=== PATIENT | female | born 1970 | race Caucasian/White ===

== ENCOUNTER → 2020-04-27 07:43 | Outpatient (CLI) | payer BC, SELFPAY ==
--- NOTE | ~2020-04-27 | MR_ITS ---
EXAMINATION: MR hand LT wo con DATE: 04/27/2020 08:28 INDICATION: Left hand pain, swelling and numbness with limited range of motion. TECHNIQUE: Magnetic resonance imaging (MRI) of the left hand was performed without intravenous contra st to include the metacarpals and digits. Sequences included axial, sagittal and coronal T1-weighted FSE and T2-weighted FS FSE. COMPARISON: None FINDINGS: Bone alignment is normal. Normal bone marrow signal throughout. Couple small T2 hyperintense lesions in the capitate which appear to represent sites of small vascular channels with differential includin g intraosseous ganglion cysts or erosions. No other suspected erosions identified. Joint spaces appe ar relatively preserved with no joint effusions. There is mild increased fluid signal consistent with mild tenosynovitis extending along the otherwise normal-appearing flexor tendons of the third digit and to a lesser degree the fourth digit. Remaining flexor and extensor tendons appear normal. The col lateral ligament complex at the metacarpophalangeal and interphalangeal joints appear normal. Intrins ic musculature of the hand is normal. IMPRESSION: 1. Mild tenosynovitis along the flexor tendons in the third and to lesser degree fourth digits. 2. A couple small T2 hyperintense lesions in the capitate is likely representing vascular channels di fferential including degenerative cystic change or possibly erosions. There are however no other eros ions at the metacarpophalangeal or interphalangeal joints. Reviewed, dictated and finalized at location A. ORT RAMP AGENT IMPRESSION: 1. Mild tenosynovitis along the flexor tendons in the third and to lesser degre e fourth digits. 2. A couple small T2 hyperintense lesions in the capitate is likely representin g vascular channels differential including degenerative cystic change or possib ly erosions. There are however no other erosions at the metacarpophalangeal or interphalangeal joints.
== END ==
PROVIDERS: PCP Family Medicine; Visit Provider Family Medicine
DX: M79.645 Pain in left finger(s) (principal)
CPT/HCPCS: 73218

== ENCOUNTER 2021-03-01 00:44 | Day surgery (SDC) | payer OTHER, SELFPAY ==
[2021-02-27 13:51] VITALS: BMI 23.1
--- NOTE | 2021-02-27 14:01 | PC.NURSE ---
Report to the Outpatient Waiting Room, entrance under the green pavilion located off [facility], at time 1230 on date 03/01/21. OR Time: 1430. - You will be asked a series of questions to screen for COVID 19 for your protection. - A mask is required within the hospital. - No visitors are allowed at this time. Preoperative COVID Testing Requirements: No COVID Test needed if: (proof is required; if not received patient will have Rapid Test prior to entry) - Patient has received COVID Vaccine at least 14 days prior to procedure date or - Patient has positive COVID test result within last 90 days of surgery date. COVID Test needed if above criteria is not met Patients may have clear liquids (water, carbonated beverages, clear teas, apple juice) until 3 hours prior to surgery with a maximum of 20 ounces. - No food from midnight until time of surgery - Infants may have breast milk until 4 hours before surgery, infant formula 6 hours prior to surgery. - Children will be allowed to drink immediately following surgery. If applicable, please bring a bottle or sippy cup to assist with drinking. Juice, water, soda, and popsicles are readily available. For infants on formula, please bring formula the day of surgery. Pacifiers are allowed. Take the following medications with a SIP of water the morning of surgery: TRAMADOL (IF NEEDED) Medications to discontinue per physician: VITAMINS /SUPPLEMENTS Date to take last dose: NOW Please no make-up, nail german, hairspray, perfume, deodorant, or body powder the day of surgery. No jewelry (including any body piercings) or valuables the day of surgery, leave them at home. Please take a shower or bath the night before, or the morning of, surgery with an antibacterial soap. Wear comfortable, loose fitting clothing. - Jewelry must be removed prior to entering the operating room. Rings and piercings that are not removed may be cut off. - The hospital will not accept responsibility for valuables. - Please leave all valuables, including medications, at home the day of surgery. If you are going home after surgery, a licensed truck driver supervisor must drive you home. - NO public transportation without another adult. - We recommend that an adult stay with you for 24 hours following discharge. - We also recommend that you do not drive, make important decision, drink alcoholic beverages, or take any drugs that were not prescribed by your health care provider for at least 24 hours after your discharge time. Follow any additional instructions given to you from your surgeon. Telephone instructions given to JUAN PABLO ARIAS and asked if any additional questions and then verbalized understanding. Patient advised to call surgeon office or pre surgery nurse liaison [phone] if any additional questions.
--- NOTE | 2021-02-28 15:25 | WPDANESEPPF ---
Anes - Initial Pre Proc Eval Procedure: Operation Date: 03/01/21 14:30 Proposed Procedures p Bilateral Breast Augmentation - Marek Pelaez MD Date/Time: 02/28/21 15:25 Surgeon: Marek Pelaez MD Pre Op Diagnosis: Micromastia Patient Data Age: 50 Gender: F Height: 1.68 m Weight: 64.86 kg Allergies Allergy/AdvReac Type Severity Reaction Status Date / Time diclofenac Allergy Unknown Hives Verified 03/01/21 12:27 Home Medications Medication Instructions Recorded Confirmed Type hydroxychloroquine 200 mg tablet See Rx Instructions .ROUTE 09/28/19 03/01/21 Rx .COMPLEX #180 tablet alprazolam 0.5 mg tablet 1 mg PO HS 01/15/21 03/01/21 History dextroamphetamine-amphetamine 20 20 mg PO DAILY 01/15/21 03/01/21 History mg tablet meloxicam 15 mg tablet 15 mg PO DAILY 01/15/21 03/01/21 History tramadol 50 mg tablet 50 mg PO Q6H PRN 01/15/21 03/01/21 History docusate sodium 100 mg capsule 100 mg PO DAILY #14 cap 02/14/21 03/01/21 Rx oxycodone-acetaminophen 5 mg-325 1 tablet PO Q6H PRN #30 tablet 02/14/21 03/01/21 Rx mg tablet creatine monohydrate 5,000 mg PO HS 02/27/21 03/01/21 History Patient hx anesthesia problems: none Family hx anesthesia problems: none Results Review: All pre-operative results and documents have been reviewed as part of the pre-operative evaluation. [facility] Past Medical History Medical History (Updated 02/28/21 @ 15:25 by Dominik Mitchell DO) ADHD Arthritis Lazy eye Primary localized osteoarthritis of hips, bilateral Rheumatoid arthritis with rheumatoid factor of multiple sites without organ or systems involvement (~2018) Surgical History Surgical History History of hip replacement Hx of tubal ligation Family History Family History Sibling History of kidney cancer Melanoma Father Vascular dementia Hx of blood clots Cerebrovascular accident Hypertension Grandparent Acute myocardial infarction Brain tumor Mother Arthritis Other Family history of arthritis Social History Social History Smoking packs per day: 1 Smoking cigarettes per day: 20.0 Years smoked: 28 Smoking pack-years: 28.00 Smoking status: Former smoker Tobacco type: cigarettes Smoking end date: 03/03/10 Alcohol intake: current Alcohol use details: A COUPLE/MONTH Substance use: never Substance use type: does not use Living arrangements: with family Spiritual care concerns: No Anes - Eval Final PreProcedure Day of Procedure 02/28/21 15:25 Patient weight: normal Heart: regular rate and rhythm Lungs: clear to auscultation and normal air movement Airway: Mallampati scale class II Neurological: alert and oriented Last oral intake: >/= 8 hours ASA classification: II Emergent: no Anesthetic plan: proceed Anesthesia type and monitoring: general LMA and standard monitoring Results Review: All pre-operative results and documents have been reviewed as part of the pre-operative evaluation. Informed Consent: The patient's anesthetic plan and its attendant risks and benefits were discussed with the patient/family/POA. Questions were solicited and answers provided to the satisfaction of the patient/family/POA.
[2021-03-01] VITALS (8 sets, daily range): BP systolic 119–141; BP diastolic 65–92; PULSE 70–91; RESP 12–16; TEMP 36.6–36.8; O2SAT 99–100
--- NOTE | 2021-03-01 09:43 | ECG_ITS ---
Measurements Intervals [place] Rate: 71 P: 81 MI: 185 QRS: 97 QRSD: 92 T: 62 QT: 376 QTc: 410 Interpretive Statements SINUS RHYTHM RIGHT AXIS DEVIATION INCOMPLETE RIGHT BUNDLE BRANCH BLOCK LOW QRS VOLTAGE IN PRECORDIAL LEADS BORDERLINE ECG Electronically Signed On 03-01-2021 12:37:24 CURRICULUM DEVELOPMENT MANAGER by Dutch Christensen D.O.
[2021-03-01] MEDS: LACTATED RINGERS 1,000 ML 30 ML IV CONT ×2 (12:46→15:28)
--- NOTE | 2021-03-01 15:13 | WPDHPUPDATE1 ---
History and Physical Update Update Date/Time: 03/01/21 15:13 History and Physical has been reviewed, including an updated exam of the patient. There are NO changes in the patient's condition. Risks, benefits, and alternatives have been discussed and questions answered. Patient agrees to proceed with procedure.
--- NOTE | 2021-03-01 15:32 | W.PM.PROC2 ---
Procedure Note - Detailed Date of Procedure 03/01/21 Pre-op Diagnosis Micromastia Post-op Diagnosis same Procedure Performed Bilateral augmentation mammaplasty Surgeon Marek Pelaez MD Anesthesia general Findings Bilateral dual plane 1 augmentation mammaplasty Alyssa Soft-Touch 400cc silicone smooth implants Right - REF# [id number] SN [id number] Left - REF# [id number] SN [id number] Description of Procedure She is here today for bilateral breast augmentation. Previously and again today the risks, benefits, alternatives were discussed in extensive detail. I wanted her to be very realistic about the risks involved as well as expectations. We discussed aftercare and what to monitor for. Made sure answered all of her questions to her satisfaction today and consent was obtained. Marked in the preoperative holding area with their verification. The patient was taken to the operating room placed supine on the operating table. Anesthesia was provided by anesthesiology. A surgical time-out was taken. We cleansed the skin and 1% lidocaine and 0.25% Marcaine with epinephrine was used anesthetize as a field block. She was prepped and draped in a standard sterile fashion. Tegaderm nipple [place] were placed. A 15 blade used to make an incision along the inframammary fold. Dissection was continued at 45 degree angle until the chest wall as identified. I incised the pectoralis major along its inferior border and completely released the inferior border leaving the medial border intact. I created a subpectoral pocket in the appropriate dimensions based on our preoperative planning for the implant. I then copiously irrigated with saline solution and verified a strict hemostasis. Next the use a triple antibiotic and Betadine containing solution to irrigate the pocket. I washed my gloves with the triple antibiotic and Betadine solution. We washed the implant immediately upon opening it with this solution and only opened it when we needed it. I used implant funnel and no-touch technique. The implant was introduced into the pocket using the funnel. Having verified positioning of the implant this was closed using 2-0 Vicryl followed by 3-0 Monocryl in a running subcuticular 4-0 Monocryl followed by tissue glue. Fluffs and surgical bra were placed. Patient was awoke and taken to PACU without difficulty. All instrument sponge counts were correct at the end of the case. Estimated Blood Loss 20 Drains No Packing No Pathology none sent Complications No immediate complications Condition stable Disposition PACU
[2021-03-01] MEDS: ceFAZolin 2 GM/D5W 50 ML 2 GM/50 ML BAG IVPB (15:49)
[2021-03-01] MEDS: LIDO 1%/EPINEPHRINE/PF 1:200,000 30 ML VIAL XX (15:56)
[2021-03-01] MEDS: BUPIVACAINE HCL 0.25% PF 30 ML VIAL INFILTRATE (15:56)
[2021-03-01] MEDS: TRANEXAMIC ACID 1,000MG/ISO100 1,000 MG/100 ML BAG 200 MG IVPB (15:57)
--- NOTE | 2021-03-01 16:30 | SUR.OPER ---
Breast Implants: From 's office [facility] SoftTouch Breast Implant 400CC Right: REF: [facility]-400 SN: [id number] EXP: 08-28-2025 Left : REF: LP-400 SN: [id number] EXP: 11-13-2025
[2021-03-01] MEDS: fentaNYL CITRATE INJ (*CRX) 100 MCG/2 ML VIAL 25 MCG IV PUSH ×2 (17:05→17:11)
[2021-03-01] MEDS: oxyCODONE HCL (*CRX) 5 MG TAB IR PO (17:54)
[2021-03-01] MEDS: ONDANSETRON INJ 4 MG/2 ML VIAL IV PUSH (17:57)
--- NOTE | 2021-03-01 18:17 | SUR.PHASEII ---
PT MEETS DISCHARGE CRITERIA AND IS GETTING DRESSED. PT RIDE IS PULLING UP AT THE ENTRANCE.
== END 2021-03-01 18:32 | disposition home or self-care (01) ==
PROVIDERS: PCP Family Medicine; Visit Provider Surgery Plastic and Reconstructive Surgery
PROC: (CPT 19325; principal; 2021-03-01 14:30)
DX: Z41.1 Encounter for cosmetic surgery (principal); N64.82 Hypoplasia of breast; M19.90 Unspecified osteoarthritis, unspecified site; M06.9 Rheumatoid arthritis, unspecified; I45.10 Unspecified right bundle-branch block; F90.9 Attention-deficit hyperactivity disorder, unspecified type; Z87.891 Personal history of nicotine dependence
CPT/HCPCS: 19325; 93005; A9270; J0690; J1100; J1170; J1580; J2250; J2405; J2704; J3010; J7120

== ENCOUNTER 2021-10-06 09:04 | Emergency (ER) | payer BC, SELFPAY ==
--- NOTE | ~2021-10-06 | XR_ITS ---
XR ankle LT min 3V DATE: 10/06/2021 09:24 INDICATION: Fall.. Lateral left ankle swelling. TECHNIQUE: 3 views COMPARISON: 02/27/2012 left ankle FINDINGS: There is a linear oblique fracture of the lateral malleolus above the level of the talar do me, with approximately one cortical width lateral displacement. There is overlying soft tissue swelli ng. The medial malleolus and posterior malleolus appear intact. The ankle mortise appears preserved. Plantar calcaneal enthesopathy. IMPRESSION: Lateral malleolar fracture Reviewed, dictated and finalized at location A. IMPRESSION: Lateral malleolar fracture
[2021-10-06 09:13] VITALS: BP 136/75; PULSE 98; RESP 16; TEMP 37.1; O2SAT 100
--- NOTE | 2021-10-06 09:39 | ED.LOWEXIN ---
HPI - Extremity Injury (Lower) General Chief Complaint: Extremity Injury, Lower Stated Complaint: Left ankle Pain Time Seen by Provider: 10/06/21 09:26 Source: patient Mode of arrival: ambulatory Limitations: no limitations History of Present Illness HPI Narrative: Patient presents today complaining of left lateral ankle pain. She fell on a metal walkway getting out of a ride last night at 9 PM. She has been ambulatory with severe pain since that time. She currently rates her pain 6/10 at rest, which increases significantly with movement. She has been taking her daily scheduled tramadol twice daily and once daily meloxicam for chronic pain and RA. These have not been helping much with her acute pain.Reports some tingling in her ankle and foot. Related Data Home Medications Medication Instructions Recorded Confirmed alprazolam 0.5 mg tablet 1 mg PO HS 01/15/21 10/06/21 dextroamphetamine-amphetamine 20 20 mg PO DAILY 01/15/21 10/06/21 mg tablet (Adderall) meloxicam 15 mg tablet 15 mg PO DAILY 01/15/21 10/06/21 creatine monohydrate 5,000 mg oral 5,000 mg PO HS 02/27/21 10/06/21 powder packet tramadol 50 mg tablet 50 mg PO BID 10/06/21 10/06/21 Allergies Allergy/AdvReac Type Severity Reaction Status Date / Time diclofenac Allergy Unknown Hives Verified 10/06/21 09:10 Review of Systems Review of Systems: CONSTITUTIONAL: Denies body aches, fever, chills, or sweats. EYES: Denies visual changes, redness, or discharge. ENT: Denies rhinorrhea, congestion, sore throat, or otalgia. CARDIOVASCULAR: Denies chest pain, palpitations, or edema. RESPIRATORY: Denies cough or dyspnea. GASTROINTESTINAL: Denies abdominal pain, nausea, vomiting, or diarrhea. GENITOURINARY: Denies dysuria or hematuria. SKIN: Denies rash, itching, or wounds. MUSCULOSKELETAL: Denies back pain, or myalgia.+Left ankle injury NEUROLOGIC: Denies headache, numbness, or weakness.+Tingling in ankle and foot PSYCH: Denies depression or anxiety. 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 systems involvement (~2018) Surgical History Surgical History History of hip replacement Hx of tubal ligation Family History Family History Sibling History of kidney cancer Melanoma Father Vascular dementia Hx of blood clots Cerebrovascular accident Hypertension Grandparent Acute myocardial infarction Brain tumor Mother Arthritis Other Family history of arthritis Social History Social History Smoking packs per day: 1 Smoking cigarettes per day: 20.0 Years smoked: 28 Smoking pack-years: 28.00 Tobacco type: cigarettes Smoking end date: 03/03/10 Alcohol intake: current Alcohol use details: A COUPLE/MONTH Substance use: never Substance use type: does not use Spiritual care concerns: No Comments At time of signature, I have reviewed and agree with nursing past medical, surgical, social and family history unless otherwise noted. Please see nursing chart for further information. There is no relevant family history pertinent to the presenting complaint Exam Narrative: GENERAL: Well-appearing, well-nourished, and in no acute distress. HEAD: Normocephalic, atraumatic. EYES: EOMI. No redness or drainage. Conjunctivae normal. ENT: Mucous membranes pink and moist. NECK: Normal AROM. CHEST: No respiratory distress. EXTREMITIES: Left ankle:Mild to moderate swelling about the ankle. Mild bruising laterally. Tenderness laterally. Distal sensation intact In all 5 toes. Capillary refill normal. Pedal pulse normal. Limited range of mo
== END 2021-10-06 09:55 | disposition home or self-care (01) ==
PROVIDERS: Emergency Provider Nurse Practitioner; PCP Family Medicine
DX: S82.62XA Displaced fracture of lateral malleolus of left fibula, initial encounter for closed fracture (principal); W19.XXXA Unspecified fall, initial encounter; F90.9 Attention-deficit hyperactivity disorder, unspecified type; M16.0 Bilateral primary osteoarthritis of hip; M05.79 Rheumatoid arthritis with rheumatoid factor of multiple sites without organ or systems involvement
CPT/HCPCS: 29515; 73610; 99214; G0463

== ENCOUNTER 2024-08-02 11:35 | Outpatient (CLI) | payer BC, SELFPAY ==
--- NOTE | 2024-08-02 11:30 | ECG_ITS ---
Test Date: 2024-08-02 11:57:44 Measurements Intervals [place] Rate: 75 P: 80 MO: 162 QRS: 90 QRSD: 82 T: 50 QT: 373 QTc: 418 Interpretive Statements SINUS RHYTHM BASELINE ARTIFACT- I, V4-V6 NORMAL ECG No previous ECG available for comparison Electronically Signed On 08-02-2024 15:49:37 CDT by Dutch Christensen D.O.
--- OUTSIDE RECORDS SUMMARY | 2024-08-02 12:03 | XMS_ITS | Encounter Summary ---
Author Organization [facility] Address [address] [place] [address] Phone Care Team Providers Care Cardiac Nurse Name Role Phone Anthony Sanders MD Primary Care Provider [phone] Ac Mcnulty MD Primary Care Provider Encounter Details Date Type Department Care Team (Late st Contact Info) Description 04/27/2020 Orders Only [facility] Scanning, Provider Social History Tobacco Use Types Packs/Day Years Used Date Smoking Tobacco: Never Assessed Comments Unknown Sex and Gender Information Value Date Recorded Sex Assigned at Not on file Legal Sex Female 4:03 PM GAME TECHNICIAN Gender Identity Female 05/05/2023 1:51 PM GAME TECHNICIAN Sexual Orientation Not on file documented as of this encounter Plan of Treatment Not on file documented as of this encounter Procedures Procedure Name Priority Date/Time Associated Diagnosis Comments SCAN - RADIOLOGY/IMAGING 04/27/2020 documented in this encounter Results * SCAN - RADIOLOGY/IMAGING (04/27/2020) Anatomical Region Laterality Modality Other us Provider Scanning Final Result documented in this encounter Visit Diagnoses Not on filedocumented in this encounter Additional Health Concerns Infection Onset Date Last Indicated Resolved Time COVID: Suspected 02/09/2024 02/09/2024 02/09/2024 12:04 PM GAME TECHNICIAN documented as of this encounter Care Teams Cardiac Nurse Relationship Specialty Start Date End Date Anthony Sanders MD [address] [place] [address] [place] [address] PCP - General Family Medicine 05/04/20 10/28/23 Ac Mcnulty MD [address] [place] [address] [place] [address] PCP - General Family Medicine 10/29/23 documented as of this encounter
--- OUTSIDE RECORDS SUMMARY | 2024-08-02 12:03 | XMS_ITS | Data Portability ---
Author Organization [facility] Address [address] [place] [address] [address] Assessment No assessment recorded. Plan of Treatment Reminders Order Date Submit Date Provider Last Modified By Organization Details Last Modified Time Details Appointments None recorded. Lab None recorded. Referral None recorded. Procedures None recorded. Surgeries hysterosco py, surgical, with biopsy of endometriu m and/or polypectom y (SURG) [address], [address], [place], [address], 0 20:47:15 Imaging US, transvagin al [address], [address], [address], [place], [address], 0 22:00:25 Medication Orders Anderson 5 mg-325 mg tablet 2019 INTERFACE [facility] #[id number], [address] [facility], [place], [place], [id number], 0 10:53:38 Xanax 0.5 mg tablet 2019 INTERFACE [facility] #[id number], [address] [facility], [place], [place], [id number], 0 10:53:37 ibuprofen 800 mg tablet 2019 020 INTERFACE [facility] #55130, [address], [place], [place], [id number], 0 10:53:36 Zofran 8 mg tablet 2019 020 INTERFACE [facility] #[id number], [address], [place], [place], [id number], 0 10:53:37 Patient TargetsNo targets recorded. Patient InstructionsNo instructions recorded. Reason for Referral None Reported. Results Created Date Observation Date Name Description Value Unit Range Abnormal Flag Note LastModifiedBy Organization Detail LastModifiedTime 09/07/19 20 US, trans vagin al No observ ation record ed. arnavran Ana [address], [place], [address], 09/09/2019 13:20:10 Result Notes None recorded. Problems Name Problem SNOMED Code Status Onset Date Resolution Date Notes Provider Name and Address Organization Details Recorded Time Genuine stress incontine nce 57072455 Active 2019 Stress incontinen ce (female) (male);Rec orded Elsewhere: No [facility]atio [facility]: EHR Chroni c: N Practice ID: [id number] Billa ble Time: 01:00:00 PM Not Available [facility] 0 18:26:19 Bleeding 291052156 Active 2019 Abnormal uterine and vaginal bleeding, unspecifie d;Recorded Elsewhere: No Locatio n: [facility] rce: EHR Chroni c: N Practice ID: [id number] Billa ble Time: 02:45:00 PM Not Available [facility] 0 18:26:19 Problem Notes None recorded. Medical Equipment None Reported. Medications Name Sig Start Date Stop Date Status Note LastModified by Organization Details LastModified Time Xanax 0.5 mg tablet Take 1 tablet 2 hours prior to procedure . 2019 active Not Available Not Available Not Avai lable ibuprofen 800 mg tablet TAKE 1 TABLET BY MOUTH 2 HOURS PRIOR TO PROCEDURE 2019 active Not Available Not Available Not Avai lable fluconazol e 150 mg tablet active Not Available Not Available Not Available Adderall 5 mg tablet take 1 tablet by oral route 2 times every day before breakfast and at noon active Prescribe d Elsewhere : Yes Locat ion: [facility] Mo dify By: trace [place] [email or web address] DateTime: 0 01:00:00 PM Not Available Not Available Not Available meloxicam 15 mg tablet active Not Available Not Available Not Available metronidaz ole 0.75 % (37.5 mg/5 gram) vaginal gel active Not Available Not Available Not Available tramadol 50 mg tablet active Not Available Not Available Not Available propranolo l 10 mg tablet active Not Available Not Available Not Available Zofran 8 mg tablet 1 tablet 2 hours prior to procedure 2019 active Not Available Not Available Not Avai lable methocarba mol 750 mg tablet active Not Available Not Available Not Available progestero ne micronized 200 mg capsule TAKE ONE CAPSULE BY MOUTH EVERY DAY FOR 12 DAYS IN THE EVENING SEQUENTIA LLY PER 28 DAY CYCLE active Not Available Not Available No t Available hydrochlor othiazide 12.5 mg capsule take 1 capsule by oral route every day active Prescribe d Elsewhere : Yes Locat ion: [facility] dify By: trace Cross ncounter DateTime: 0 01:00:00 PM Not Available Not Available Not Available Adderall XR 10 mg capsule,ex tended release active Not Available Not Available Not Available Alprazolam Intensol 1 mg/mL oral concentrat e take 0.25 millilite r by oral route 3 times every day mixed with water, juice, soda, soda-like beverage, applesauc e or pudding active Prescribe d Elsewhere : Yes Locat ion: [facility] dify By: trace Cross ncounter DateTime: 0 01:00:00 PM Not Available Not Available Not Available hydroxychl oroquine 200 mg tablet active Not Available Not Available Not Available Anderson 5 mg-325 mg tablet Take 2 tablets 2 hours prior to procedure . 2019 active Not Available Not Available Not Avai lable progestero ne micronized 100 mg capsule Take 1 capsule every day by oral route. active Not Available Not Available No t Available Adderall XR 15 mg capsule,ex tended release active Not Available Not Available Not Available tramadol ER 300 mg capsule 24 hr,extende d release take 1 capsule by oral route every day active Prescribe d Elsewhere : Yes Locat ion: [facility] difilir By: smct[facility]ay [place] ncounter DateTime: 0 01:00:00 PM Not Available Not Available Not Available Vitals Date Recorded Body weight Body mass index (BMI) Body height Systolic blood pressure Diastolic blood pressure Provider Name and Address Organization Details Last Updated DateTime 09/07/2019 06684 g 25.3 kg/m2 167.64 cm 119 mm[Hg] 72 mm[Hg] Maria Guadalupe Lopez [facility] 0 10:18:01 Social History None recorded. Functional Status None recorded. Mental Status None recorded. Family History Relationship Description Onset Age of this Age Resolved Age Notes LastModified by Organization Details LastModified Time Mother Disorder of thyroid gland [email or web address] Not available 2019 10:29:52 Father Hypertensive disorder [email or web address] Not available 2019 10:30:21 Father Hyperlipidem ia [email or web address] Not available 2019 10:30:33 Brother Carcinoma in situ of kidney [email or web address] Not available 2019 10:30:56 Notes:Prolapsed uterus- Moth er Brother: Cancer, kidney Father: Hypertension, high cholesterol Mother: Thyroid disease, prolapsed uterus Medical History Condition Response Anxiety Disorder Y Gynecological HistoryNo gynecological history recorded. Obstetrics History GPAL:G 0 P 0 0 0 0 Past Encounters Encounter ID Performer Location Encounter Start Date Encounter Closed Date Diagnosis/Indication Diagnosis SNOMED-CT Code Diagnosis ICD10 Code Diagnosis Note [id number] Dion Castillo MD [facility] [address] [address] 09/07/2019 09:40:48 09/07/2019 10:33:26 Abnormal uterine bleeding [id number] 9100 N93.9 [id number] Dion Castillo MD [facility] [address] [address] 09/07/2019 09:42:39 09/08/2019 15:16:18 Abnormal uterine bleeding 9340249939 9100 N93.9 Polyp of corpus uteri 11 374395 N84.0 This patient is a 48-year-ol d female who presents forabnorma l uterine bleeding.T he patient was being treated withdailym icronized progestero ne. For 3-1/2 months she did not have any bleeding.P roximately 2 weeks ago she began bleeding fairly heavily.Sh e has been bleeding currently for 2 weeks. An ultrasound was obtained today.Ultr asoundreve aled2 possibleva scular lesions within the endometriu m.We discussed those findings. We discussede valuation. I recommende d that we perform hysterosco py D&C to evaluate the lesions and sample them.She agreed to that. We spent more than 15 minutes face-to-fa ce. We are going to proceed with hysterosco py D&Kendal the office.We discussed risk of the procedure. Patient understand s her risk, benefits, and alternativ es to this procedure. We discussed performing the procedure under sedation at the hospital, and also with pain medication here in the office. We have elected to perform it in the office. Health Concerns Section Related Observation LastModified by Organization Detai ls LastModified Time None Recorded Concern Status LastModified by Organization Details LastModified Time None Recorded Advance Directives Directive None Recorded Payers Encounter Date Sequence Insurance Name Policy Number Policy Leon Covered Member ID Leon Member ID Guarantor Name 09/07/2019 1 [employer] [id number] Orlin Cordero [id number] 09/07/2019 1 [place] [id number] Orlin Cordero [id number] Notes Date Note Type Note Provider Name and Address Organization Details Recorded Time 09/07/2019 text/html This patient is a 48-year-old female who presents for abnormal uterine bleeding. The patient was being treated with daily micronized progesterone. For 3-1/2 months she did not have any bleeding. Proximately 2 weeks ago she began bleeding fairly heavily. She has been bleeding currently for 2 weeks. An ultrasound was obtained today. Ultrasound revealed 2 possible vascular lesions within the endometrium. We discussed those findings. We discussed evaluation. I recommended that we perform hysteroscopy D&C to evaluate the lesions and sample them. She agreed to that. We spent more than 15 minutes [id number]. We are going to proceed with hysteroscopy D&C in the office. Dion Castillo MD [address], [place], [address], [place] [facility] 09/07/2019 20:08:14 OBGyn Episode No OBEpisode recorded.
--- OUTSIDE RECORDS SUMMARY | 2024-08-02 12:03 | XMS_ITS | Patient Health Record ---
Author Organization [facility] Address [address] [facility] [address] [place] [address] Care Team Providers Care Market Research Consultant Name Role Phone Gregor Gonzalez Unavailable [phone] Bang Diaz Unavailable [phone] Allergies No Known Allergies Reason For Referral No Information Medications Medication SIG (Take, Route, Frequency, Duration) Notes Start Date End Date Status Hydroxychloroquine Sulfate 2 00 MG Oral 06/26/2023 Active lamoTRIgine 25 MG 2 tablets Oral once a day for 90 days Active Methotrexate Sodium 2.5 MG Oral for 30 Days Active Pantoprazole Sodium 40 MG TAKE 1 TABLET BY MOUTH ONCE DAILY TO PROTECT STOMACH LINING Oral for 30 Days Active Folic Acid 1 MG Oral for 30 Days Active Ibuprofen 600 MG Oral 06/26/2023 Ac tive Meloxicam 15 MG Oral 06/26/2023 Act arnulfo DULoxetine HCl 60 MG 1 capsule Oral Once a day for 90 days Active Immunizations Vaccine Route Administration Date Status Comme nts Pfizer [employer] Covid-19 Vac cine 2nd dose Unknown 01/08/2021 Administered Social History Tobacco Use: Social History Observation Description Date Details (start date - stop date) Former Smoker NA - NA Sex Assigned At : Social History Observation Description Sex Assigned At Female Tobacco Control (Standard) Question Answer Notes Tobacco use: Former smoker Problems Problem Type SNOMED Code ICD Code Onset Dates Problem Status W/U Status Risk Notes Problem Moderate recurrent major depression (79067456) Major depressive disorder, recurrent, moderate (F33.1) Active confirmed Problem Primary insomnia (5841647) Primary insomnia (F51.01) Active confirmed Problem Attention deficit hyperactivity disorder, combined type (26550392) Attention-deficit hyperactivity disorder, combined type (F90.2) Active confirmed Vital Signs Heart Rate 91 /min 11/10/2023 Height-cm 167.64 cm 11/10/2023 Blood pressure diastolic 77 mm Hg 11/10/2023 Weight-kg 73.03 kg 11/10/2023 Height 66.00 in 11/10/2023 Blood pressure systolic 127 mm Hg 11/10/2023 Weight 161.0 lbs 11/10/2023 BMI 25.98 kg/m2 11/10/2023 Encounters Encounter Location Date Provider Diagnosis [facility] [address] [place] [address] 09/29/2023 Gregor Gonzalez Primary insomnia F51 .01 ; Attention-deficit hyperactivity disorder, combined type F90.2 and Mild recurrent major depression F33.0 [facility] [address] [place] [address] 11/10/2023 Gregor Gonzalez Primary insomnia F51 .01 ; Attention-deficit hyperactivity disorder, combined type F90.2 and Mild recurrent major depression F33.0 [facility] [address] [place] [address] 08/18/2023 Gregor Gonzalez Major depressive disorder, recurrent, moderate F33.1 [facility] [address] [place] [address] 08/18/2023 Rgegor Gonzalez [facility] [address] [place] [address] 08/29/2023 Gregor Gonzalez [facility] [address] [place] [address] 08/30/2023 Gregor Gonzalez Major depressive disorder, recurrent, moderate F33.1 [facility] [address] [place] [address] 09/19/2023 Bang Diaz Major depressive disorder, recurrent, moderate F33.1 [facility] [address] [place] [address] 12/03/2023 Rgegor Gonzalez Mild recurrent major depression F33.0 Assessments Encounter Date Diagnosis (ICD Code) Assessment Notes Treatment Notes Treatment Clinical Notes Section Notes 08/18/2023 Major depressive disorder, recurrent, moderate (ICD-10 - F33.1) 08/30/2023 Major depressive disorder, recurrent, moderate (ICD-10 - F33.1) 09/19/2023 Major depressive disorder, recurrent, moderate (ICD-10 - F33.1) 09/29/2023 Primary insomnia (ICD-10 - F51.01) 1. Depression and Anxiety: - Increase Duloxetine from 30 mg to 60 mg daily. . - Consider referral to a therapist specializing in ADHD, such as [facility] in [place]. 2. ADHD: - Patient prefers not to take stimulants; Strattera was not effective. Plan: - Explore Cognitive Behavioral Therapy (CBT) for ADHD with a specialized therapist, such as [facility] in [place]. - Follow up in six weeks to assess response to increased Duloxetine dosage and other medication adjustments. 09/29/2023 Attention-deficit hyperactivity disorder, combined type (ICD-10 - F90.2) 1. Depression and Anxiety: - Increase Duloxetine from 30 mg to 60 mg daily. . - Consider referral to a therapist specializing in ADHD, such as [facility] in [place]. 2. ADHD: - Patient prefers not to take stimulants; Strattera was not effective. Plan: - Explore Cognitive Behavioral Therapy (CBT) for ADHD with a specialized therapist, such as [facility] in [place]. - Follow up in six weeks to assess response to increased Duloxetine dosage and other medication adjustments. 11/10/2023 Primary insomnia (ICD-10 - F51.01) persistent sleep problems 1. Rheumatoid arthritis - Patient reports improvement in pain with methotrexate. Plan: - Continue methotrexate as prescribed. - Monitor for side effects such as hair loss, upset stomach, and lethargy. 2. Mood disorder - Patient is currently on duloxetine 60 mg and reports improvement in mood. Plan: - Continue duloxetine 60 mg as prescribed. - Monitor for any changes in mood or side effects. 3. Hormonal imbalance - Patient is using testosterone cream and reports improvement in energy and mood. Plan: - Encourage follow-up with OBGYN, for further evaluation and management of hormonal imbalance. 4. Sleep disturbance - Patient reports ongoing sleep issues despite stopping gabapentin, prednisone, and meloxicam. Plan: - Encourage good sleep hygiene and consider referral to a sleep specialist if no improvement. 5. Weight loss and exercise - Patient reports losing 13 pounds since the last visit and has resumed training. Plan: - Encourage continued healthy lifestyle changes, including regular exercise and a balanced diet. 6. ADHD - Patient is not currently taking any ADHD medications and reports managing symptoms without them. Plan: - Monitor for any changes in ADHD symptoms and consider re-evaluation if needed. 7. Anxiety - Patient reports not taking alprazolam (Xanax) since July and managing anxiety without it. Plan: - Continue to monitor for any changes in anxiety levels. Follow-up: - Schedule a follow-up appointment in six months or sooner if any issues arise. 12/03/2023 Mild recurrent major depression (ICD-10 - F33.0) 11/10/2023 Attention-deficit hyperactivity disorder, combined type (ICD-10 - F90.2) behavior modification 1. Rheumatoid arthritis - Patient reports improvement in pain with methotrexate. Plan: - Continue methotrexate as prescribed. - Monitor for side effects such as hair loss, upset stomach, and lethargy. 2. Mood disorder - Patient is currently on duloxetine 60 mg and reports improvement in mood. Plan: - Continue duloxetine 60 mg as prescribed. - Monitor for any changes in mood or side effects. 3. Hormonal imbalance - Patient is using testosterone cream and reports improvement in energy and mood. Plan: - Encourage follow-up with OBGYN, for further evaluation and management of hormonal imbalance. 4. Sleep disturbance - Patient reports ongoing sleep issues despite stopping gabapentin, prednisone, and meloxicam. Plan: - Encourage good sleep hygiene and consider referral to a sleep specialist if no improvement. 5. Weight loss and exercise - Patient reports losing 13 pounds since the last visit and has resumed training. Plan: - Encourage continued healthy lifestyle changes, including regular exercise and a balanced diet. 6. ADHD - Patient is not currently taking any ADHD medications and reports managing symptoms without them. Plan: - Monitor for any changes in ADHD symptoms and consider re-evaluation if needed. 7. Anxiety - Patient reports not taking alprazolam (Xanax) since July and managing anxiety without it. Plan: - Continue to monitor for any changes in anxiety levels. Follow-up: - Schedule a follow-up appointment in six months or sooner if any issues arise. 09/29/2023 Mild recurrent major depression (ICD-10 - F33.0) 1. Depression and Anxiety: - Increase Duloxetine from 30 mg to 60 mg daily. . - Consider referral to a therapist specializing in ADHD, such as [facility] in [place]. 2. ADHD: - Patient prefers not to take stimulants; Strattera was not effective. Plan: - Explore Cognitive Behavioral Therapy (CBT) for ADHD with a specialized therapist, such as [facility] in [place]. - Follow up in six weeks to assess response to increased Duloxetine dosage and other medication adjustments. 11/10/2023 Mild recurrent major depression (ICD-10 - F33.0) 1. Rheumatoid arthritis - Patient reports improvement in pain with methotrexate. Plan: - Continue methotrexate as prescribed. - Monitor for side effects such as hair loss, upset stomach, and lethargy. 2. Mood disorder - Patient is currently on duloxetine 60 mg and reports improvement in mood. Plan: - Continue duloxetine 60 mg as prescribed. - Monitor for any changes in mood or side effects. 3. Hormonal imbalance - Patient is using testosterone cream and reports improvement in energy and mood. Plan: - Encourage follow-up with OBGYN, for further evaluation and management of hormonal imbalance. 4. Sleep disturbance - Patient reports ongoing sleep issues despite stopping gabapentin, prednisone, and meloxicam. Plan: - Encourage good sleep hygiene and consider referral to a sleep specialist if no improvement. 5. Weight loss and exercise - Patient reports losing 13 pounds since the last visit and has resumed training. Plan: - Encourage continued healthy lifestyle changes, including regular exercise and a balanced diet. 6. ADHD - Patient is not currently taking any ADHD medications and reports managing symptoms without them. Plan: - Monitor for any changes in ADHD symptoms and consider re-evaluation if needed. 7. Anxiety - Patient reports not taking alprazolam (Xanax) since July and managing anxiety without it. Plan: - Continue to monitor for any changes in anxiety levels. Follow-up: - Schedule a follow-up appointment in six months or sooner if any issues arise. 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
--- OUTSIDE RECORDS SUMMARY | 2024-08-02 12:03 | XMS_ITS | Encounter Summary ---
Author Organization [facility] Healthcare Address [address] [place] [address] Care Team Providers Care Tool Grinder Operator External Name Role Phone Ac Mcnulty MD Primary Care Provider [phone] Encounter Details Date Type Department Care Team (Late st Contact Info) Description 06/29/2024 Results Follow-Up [facility] Family Medicine at [address] [place] [address] Ac Mcnulty MD [address] [place] [address] [address] [place] [address] CBC with auto differential Social History Tobacco Use Types Packs/Day Years Used Date Smoking Tobacco: Former Cigarettes 0.5 10 AUDIT-C Answer Date Recorded Q1: How often do you have a drink containing alcohol? Monthly or less 02/09/2024 Q2: How many drinks containi ng alcohol do you have on a typical day when you are drinking? Patient does not drink Q3: How often do you have si x or more drinks on one occasion? Never 02/09/2024 PHQ-2 Answer Date Recorded PHQ-2 Total Score (If total score is 3 or more points, staff should administer the PHQ-9) 0 05/17/2024 Comments Unknown Sex and Gender Information Value Date Recorded Sex Assigned at Not on file Legal Sex Female 4:03 PM SPEECH AND LANGUAGE TUTOR Gender Identity Female 05/05/2023 1:51 PM SPEECH AND LANGUAGE TUTOR Sexual Orientation Not on file documented as of this encounter Plan of Treatment Not on file documented as of this encounter Visit Diagnoses Not on filedocumented in this encounter Care Teams Tool Grinder Operator External Relationship Specialty Start Date End Date Ac Mcnulty MD PCP - General Family Medicine 10/29/23 documented as of this encounter
--- OUTSIDE RECORDS SUMMARY | 2024-08-02 12:03 | XMS_ITS | Encounter Summary ---
Author Organization [facility] Healthcare Address [address] [place] [address] Care Team Providers Care Handstitching Machine Armhole Feller Name Role Phone Ac Mcnulty MD Primary Care Provider [phone] Encounter Details Date Type Department Care Team (Late st Contact Info) Description 05/12/2024 Orders Only [facility] Medical Group Family Medicine at [address] [place] [address] Ac Mcnulty MD [address] [place] [address] [address] [place] [address] Social History Tobacco Use Types Packs/Day Years [...] points, staff should administer the PHQ-9) 0 10/29/2023 Comments Unknown Sex and Gender Information Value Date Recorded Sex Assigned at Not on file Legal Sex Female 4:03 PM PHARMACIST IN CHARGE OWNER Gender Identity Female 05/05/2023 1:51 PM PHARMACIST IN CHARGE OWNER Sexual Orientation Not on file documented as of this encounter Plan of Treatment Not on file documented as of this encounter Visit Diagnoses Not on filedocumented in this encounter Care Teams Handstitching Machine Armhole Feller Relationship Specialty Start Date End Date Ac Mcnulty MD PCP - General Family Medicine 10/29/23 documented as of this encounter
--- OUTSIDE RECORDS SUMMARY | 2024-08-02 12:03 | XMS_ITS | Clinical Summary ---
Author Organization [facility] Virtual Care Address [address] [place] [phone] Phone Care Team Providers Care Wire Stripper Name Role Phone Ac Mcnulty MD Primary Care Provider [phone] Allergies Active Allergy Reactions Criticality Noted Date Comments Diclofenac Hives Medium 06/12/2020 Oxycodone Hives Medium 05/12/2023 Rash Medications estradiol-noreth indrone (ACTIVELLA) 1-0.5 mg per tablet [address] (CYMBALTA) 30 mg capsule Take 1 capsule (30 mg total) by mouth every morning 4 Active lamoTRIgine (LaMICtal) 25 mg tablet Take 2 tablets (50 mg total) by mouth nightly 4 Active hydroxychloroqui ne (PLAQUENIL) 200 mg tablet TAKE 2 TABLETS FRIDAY, FRIDAY, AND FRIDAY AND 1 TABLET FRIDAY, FRIDAY, FRIDAY, AND FRIDAY 180 tablet 3 4 Active methotrexate 2.5 mg tablet Take 1 tablet (2.5 mg total) by mouth every 7 days On Wednesdays - 10 tabs per day - Active pantoprazole DR (PROTONIX) 40 mg EC tablet Take 1 tablet (40 mg total) by mouth daily Active folic acid (FOLVITE) 1 mg tablet Take 1 tablet (1 mg total) by mouth daily Active clobetasoL (TEMOVATE) 0.05 % ointmentIndicati ons:Atopic dermatitis, unspecified type Apply topically 2 (two) times a day 60 g 5 Active lisdexamfetamine (VYVANSE) 30 mg capsule Take 1 capsule (30 mg total) by mouth every morning 5 Active Active Problems Problem Noted Date Diagnosed Date Atopic dermatitis 02/09/2024 Assessment & Plan (02/09/2024 9:17 PM DIRECTOR FINANCIAL SERVICES): - Initiate Clobetasol 0.05% ointment BID - Report back to office with continued rash despite treatment after one week Primary insomnia 02/09/2024 Rheumatoid arthritis 10/29/2023 Mixed stress and urge urinary incontinence 10/28 Presence of artificial hip joint 06/29/2013 Nicotine dependence, uncomplicated 06/29/2013 Dorsalgia 06/29/2013 Attention deficit hyperactivity disorder, combin ed type 06/29/2013 Resolved Problems Problem Noted Date Diagnosed Date Resolved Date Acute non-recurrent frontal sinusitis 02/09/2024 05/17/2024 Assessment & Plan (02/09/2024 9:18 PM DIRECTOR FINANCIAL SERVICES): - COVID/flu/strep POC testing in office today negative - Due to length of symptoms suspect bacterial vs viral sinusitis - Initiate Augmentin 875-125 mg BID x 10 days - Encouraged increased fluid intake and rest - May take Tylenol 1,000 mg q6h PRN for pain Encounters Date Type Department Care Team Description 06/29/2024 Results Follow-Up [facility] at [address] [place] [phone] Ac Mcnulty MD CBC with auto differential 05/17/2024 1:30 PM CDT Office Visit [facility] at [address] [place] [phone] Ac Mcnulty MD Annual physical exam (Primary Dx) 05/12/2024 Orders Only [facility] at [address] [place] [phone] Ac Mcnulty MD from Last 3 Months Immunizations Immunization Administration Dates Next Due DTaP 06/02/2012 Hep A, Adult 06/02/2012 Hep B, Unspecified 06/02/2012 Influenza, Unspecified 12/02/2023(Deferr ed: Patient Refused),12/01/2022(Deferred: Patient Refused),03/31/2013 MMR 06/02/2012 Surgical History Surgery Date Site/Laterality Comments TUBAL LIGATION 03/03/1995 - 03/02/1996 TOTAL HIP ARTHROPLASTY 03/03/2012 - 03/02/2013 Right FL FLUORO GUIDED INJECTION HIP LEFT 10/31/2022 Left COSMETIC SURGERY 03/01/2022 breast augmentation JOINT REPLACEMENT 01/31/2023 - 03/02/2023 Left hip EYE SURGERY Left lazy eye Medical History Medical History Date Comments Polyarthritis Anxiety Family History Medical History Relation Name Comments Kidney failure Brother 3 Heart disease Father Hypertension Father Arthritis Mother Osteoarthritis Mother Arthritis Sister 1 Rheum arthritis Sister 1 Relation Name Status Comments Brother 1 Alive Brother 2 Alive Brother 3 Father Mother Alive Sister 1 Alive Sister 2 Alive Social History Tobacco Use Types Packs/Day Years [...] on file Legal Sex Female 4:03 PM DIRECTOR FINANCIAL SERVICES Gender Identity Female 05/05/2023 1:51 PM DIRECTOR FINANCIAL SERVICES Sexual Orientation Not on file Obstetrics History Last Filed Vital Signs Vital Sign Reading Time Taken Comments Blood Pressure 110/72 05/17/2024 1:52 PM CDT Pulse 80 05/17/2024 1:52 PM CDT Temperature 36.8 C (98.2 F) 05/17/2024 1:52 PM CDT Respiratory Rate 18 02/09/2024 11:06 AM DIRECTOR FINANCIAL SERVICES Oxygen Saturation 98% 05/17/2024 1:52 PM CDT Inhaled Oxygen Concentration - - Weight 88.2 kg (194 lb 8 oz) 05/17/2024 1:52 PM CDT Height 165.1 cm (5' 5) 05/17/2024 1:52 PM CDT Body Mass Index 32.37 05/17/2024 1:52 PM CDT Plan of Treatment Health Maintenance Due Date Last Done Comments Breast Cancer Screening-Mammogram 1968 Cervical Cancer Screening 1968 Colon Cancer Screening-Colonoscopy 1968 Hepatitis C Screening 1968 Pneumococcal vaccine <65 (1 of 2 - PCV) 11/21/1987 Zoster Vaccine (1 of 2) 11/21/1987 Covid-19 Vaccine (2 - Pfizer risk series) 01/29/2021 01/08/2021 DTaP/Tdap/Td Vaccine (2 - Tdap) 06/02/2022 3 Influenza Vaccine (Season Ended) 2024 03/31/19 14 Depression Screening 05/17/2025 05/17/2024, 10/29/19 24 Regular Well Visit/Exam 18-64 05/17/2025 05/17/2024 Hepatitis B Screening Completed 06/02/2012 Procedures Procedure Name Priority Date/Time Associated Diagnosis Comments T3FREE Routine 06/29/2024 8:30 AM CDT THYROXINE (T4) FREE, DIRECT, S Routine 06/29/2024 8:30 AM CDT THYROID FUNCTION CASCADE Routine 06/29/2024 8:30 AM CDT Annual physical exam LIPID PANEL Routine 06/29/2024 8:30 AM CDT Annual physical exam COMPREHENSIVE METABOLIC PANEL Routine 06/29/2024 8:30 AM CDT Annual physical exam CBC WITH AUTO DIFFERENTIAL Routine 06/29/2024 8:30 AM CDT Annual physical exam from Last 3 Months Results * Thyroxine (T4) Free, Direct, S (06/29/2024 8:30 AM CDT) [facility] Signature Free T4 1.20 0.82 - 1.77 ng/dL [facility] - 01 06/29/2024 8:30 AM CDT 06/29/2024 Narrative [facility] - 06/30/2024 3:35 AM CDT Performed at: [address] [place] [id number] Tire Recapper: Lj Mckinney PhD, Phone: [phone] Ac Mcnulty MD LAB BLOOD ORDERABLES Final Re sult Performing Organization Address [facility] de Phone Number [facility] - * T3Free (06/29/2024 8:30 AM CDT) Free T3 2.6 2.0 - 4.4 pg/mL [facility] - 01 Thyroid peroxidase (TPO) Ab, comment Comment [facility] - 01 Comment: A low TSH with a normal FT4 and a normal FT3 have been associated with Subclinical Hyperthyroidism. Similar values have also been associated with Non-Thyroidal Illness in severely ill patients. 06/29/2024 8:30 AM CDT 06/29/2024 Narrative [facility] - 06/30/2024 3:35 AM CDT Performed at: [address] [place] [id number] Tire Recapper: Lj Mckinney PhD, Phone: [phone] Ac Mcnulty MD LAB BLOOD ORDERABLES Final Re sult Performing Organization Address [facility] de Phone Number [facility] - * (ABNORMAL) Thyroid Function [place] (06/29/2024 8:30 AM CDT) TSH 0.212(L) 0.450 - 4.500 uIU/mL [facility] - 01 Blood 06/29/2024 8:30 AM CDT 06/29/2024 Narrative [facility] - 06/30/2024 3:35 AM CDT Performed at: [address] [place] [address], [place] [id number] Tire Recapper: Lj Mckinney PhD, Phone: [phone] us Ac Mcnulty MD LAB BLOOD ORDERABLES Final Re sult [facility] - 01 * (ABNORMAL) CBC with auto differential (06/29/2024 8:30 AM CDT) Pathologist [facility] [place] WBC 4.4 3.4 - 10.8 x10E3/uL [facility] - 01 RBC 4.28 3.77 - 5.28 x10E6/uL [facility] - 01 Hgb 14.2 11.1 - 15.9 g/dL [facility] - 01 Hct 42.6 34.0 - 46.6 % [facility] - 01 MCV 100(H) 79 - 97 fL [facility] - 01 MCH 33.2(H) 26.6 - 33.0 pg [facility] - 01 MCHC 33.3 31.5 - 35.7 g/dL [facility] - 01 Rdw 13.5 11.7 - 15.4 % [facility] - 01 Platelets 241 150 - 450 x10E3/uL [facility] - 01 Neutrophils pct 60 Not Estab. % [facility] - 01 Lymphs pct 29 Not Estab. % [facility] - 01 Monocytes pct 8 Not Estab. % [facility] - 01 Eosinophils pct 2 Not Estab. % [facility] - 01 Basophil pct 1 Not Estab. % [facility] - 01 Neutrophil abs 2.7 1.4 - 7.0 x10E3/uL [facility] - 01 Lymphs (Absolute) 1.3 0.7 - 3.1 x10E3/uL [facility] - 01 Monocyte abs 0.4 0.1 - 0.9 x10E3/uL [facility] - 01 Eosinophils, abs 0.1 0.0 - 0.4 x10E3/uL [facility] - 01 Basophils, abs 0.0 0.0 - 0.2 x10E3/uL [facility] - 01 Immature Granulocytes 0 Not Estab. % [facility] - 01 Immature Grans (Abs) 0.0 0.0 - 0.1 x10E3/uL [facility] - 01 Blood 06/29/2024 8:30 AM CDT 06/29/2024 Narrative [facility] - 06/30/2024 12:07 AM CDT Performed at: [address] [id number] Tire Recapper: Lj Mckinnye PhD, Phone: [phone] us Ac Mcnulty MD LAB BLOOD ORDERABLES Final Re sult Performing Organization Address [facility] de Phone Number [facility] - * (ABNORMAL) Lipid panel (06/29/2024 8:30 AM CDT) Cholesterol 200(H) 100 - 199 mg/dL [facility] - 01 Triglycerides 61 0 - 149 mg/dL [facility] - 01 HDL Cholesterol 79 >39 mg/dL [facility] - 01 VLDL 11 5 - 40 mg/dL [facility] - 01 LDL, calculated 110(H) 0 - 99 mg/dL [facility] - 01 Blood 06/29/2024 8:30 AM CDT 06/29/2024 Narrative [facility] - 06/30/2024 2:07 AM CDT Performed at: [address] [id number] Tire Recapper: Lj Mckinney PhD, Phone: [phone] us Ac Mcnulty MD LAB BLOOD ORDERABLES Final Re sult Performing Organization Address [facility] de Phone Number [facility] - * Comprehensive metabolic panel (06/29/2024 8:30 AM CDT) Glucose 88 70 - 99 mg/dL [facility] - 01 BUN 19 6 - 24 mg/dL [facility] - 01 Creatinine, Serum 0.88 0.57 - 1.00 mg/dL [facility] - 01 eGFR 78 >59 mL/min/1.73 [facility] - 01 BUN/creat ratio 22 9 - 23 [facility] - 01 Sodium 139 134 - 144 mmol/L [facility] - 01 Potassium, sr 4.6 3.5 - 5.2 mmol/L [facility] - 01 Chloride 105 96 - 106 mmol/L [facility] - 01 CO2 20 20 - 29 mmol/L [facility] - 01 Calcium 9.2 8.7 - 10.2 mg/dL [facility] - 01 Protein, sr 6.7 6.0 - 8.5 g/dL [facility] - 01 Albumin 4.5 3.8 - 4.9 g/dL [facility] - 01 Globulin, Total 2.2 1.5 - 4.5 g/dL [facility] - 01 Bilirubin, Total 0.3 0.0 - 1.2 mg/dL [facility] - 01 Alk phos 52 44 - 121 IU/L [facility] - 01 AST 19 0 - 40 IU/L [facility] - 01 ALT 9 0 - 32 IU/L [facility] - 01 Blood 06/29/2024 8:30 AM CDT 06/29/2024 Narrative [facility] - 06/30/2024 2:07 AM CDT Performed at: [facility] [address] [id number] Tire Recapper: Lj Mckinney PhD, Phone: [phone] us Ac Mcnulty MD LAB BLOOD ORDERABLES Final Re sult [facility] - 01 from Last 3 Months Insurance [facility] CHOICE OOS BLUE ACC CHOICE OOS Care Teams Wire Stripper Relationship Specialty Start Date End Date Ac Mcnulty MD PCP - General Family Medicine 10/29/23
--- OUTSIDE RECORDS SUMMARY | 2024-08-02 12:03 | XMS_ITS | Referral Summary ---
Author Organization [facility] Virtual Care Address [address] [place] [phone] Phone Care Team Providers Care Exchange Trouble Shooter Name Role Phone Ac Mcnulty MD Primary Care Provider [phone] Encounters Date Type Department Care Team Description 06/29/2024 Results Follow-Up [facility] Medical [facility] Family Medicine at [address] [place] [phone] Ac Mcnulty MD CBC with auto differential 05/17/2024 1:30 PM CDT Office Visit [facility] Family Medicine at [address] [place] [address] Ac Mcnulty MD Annual physical exam (Primary Dx) 05/12/2024 Orders Only [facility] Family Medicine at [address] [place] [phone] Ac Mcnulty MD from Last 3 Months Allergies Active Allergy Reactions Criticality Noted Date [...] 02/09/2024 Assessment & Plan (02/09/2024 9:17 PM MEN'S CUSTOM HAIR PIECE CONSULTANT): - Initiate Clobetasol 0.05% ointment BID - [...] 05/17/2024 Assessment & Plan (02/09/2024 9:18 PM MEN'S CUSTOM HAIR PIECE CONSULTANT): - COVID/flu/strep POC testing in office today negative - Due to length of symptoms suspect bacterial vs viral sinusitis - Initiate Augmentin 875-125 mg BID x 10 days - Encouraged increased fluid intake and rest - May take Tylenol 1,000 mg q6h PRN for pain Immunizations Immunization Administration Dates Next Due DTaP 06/02/2012 Hep A, Adult 06/02/2012 Hep B, Unspecified 06/02/2012 Influenza, Unspecified 12/02/2023(Deferr ed: Patient Refused),12/01/2022(Deferred: Patient Refused),03/31/2013 MMR 06/02/2012 Social History Tobacco Use Types Packs/Day Years [...] on file Legal Sex Female 4:03 PM MEN'S CUSTOM HAIR PIECE CONSULTANT Gender Identity Female 05/05/2023 1:51 PM MEN'S CUSTOM HAIR PIECE CONSULTANT Sexual Orientation Not on file Last Filed Vital Signs Vital Sign Reading Time Taken Comments Blood Pressure 110/72 05/17/2024 1:52 PM CDT Pulse 80 05/17/2024 1:52 PM CDT Temperature 36.8 C (98.2 F) 05/17/2024 1:52 PM CDT Respiratory Rate 18 02/09/2024 11:06 AM MEN'S CUSTOM HAIR PIECE CONSULTANT Oxygen Saturation 98% 05/17/2024 1:52 PM CDT Inhaled Oxygen Concentration - - Weight 88.2 kg (194 lb 8 oz) 05/17/2024 1:52 PM CDT Height 165.1 cm (5' 5) 05/17/2024 1:52 PM CDT Body Mass Index 32.37 05/17/2024 1:52 PM CDT Plan of Treatment Not on file Procedures Procedure Name Priority Date/Time Associated Diagnosis [...] Free, Direct, S (06/29/2024 8:30 AM CDT) Free T4 1.20 0.82 - 1.77 ng/dL [facility] - 01 06/29/2024 8:30 AM CDT 06/29/2024 Narrative [facility] - 06/30/2024 3:35 AM CDT Performed at: [address] [place] [id number] Unit Secy: Lj Mckinney PhD, Phone: [phone] us Ac Mcnulty MD LAB BLOOD ORDERABLES Final Re sult [facility] - 01 * T3Free (06/29/2024 8:30 AM CDT) Pathologist [facility] Free T3 2.6 2.0 - 4.4 pg/mL [...] - 06/30/2024 3:35 AM CDT Performed at: [address] [place] [id number] Unit Secy: Lj Mckinney PhD, Phone: [phone] us Ac Mcnulty MD LAB BLOOD ORDERABLES Final Re sult Performing Organization Address City/[facility]/ZIP Co de Phone Number [facility] - * (ABNORMAL) Thyroid Function [place] (06/29/2024 8:30 AM CDT) Pathologist [facility] TSH 0.212(L) 0.450 - 4.500 uIU/mL [facility] - 01 Blood 06/29/2024 8:30 AM CDT 06/29/2024 Narrative [facility] - 06/30/2024 3:35 AM CDT Performed at: [address] [place] [address] Unit Secy: Lj Mckinney PhD, Phone: [phone] Ac Mcnulty MD LAB BLOOD ORDERABLES Final Re sult Performing Organization Address [facility] Co de Phone Number [facility] - * (ABNORMAL) CBC with auto differential (06/29/2024 8:30 AM CDT) Pathologist [facility] WBC 4.4 3.4 - 10.8 x10E3/uL [facility] [...] - 06/30/2024 12:07 AM CDT Performed at: [address] [place] [id number] Unit Secy: Lj Mckinney PhD, Phone: [phone] us Ac Mcnulty MD LAB BLOOD ORDERABLES Final Re sult [facility] - 01 * (ABNORMAL) Lipid panel (06/29/2024 8:30 AM CDT) [facility] Cholesterol 200(H) 100 - 199 mg/dL [facility] - 01 Triglycerides 61 0 - 149 mg/dL [facility] - 01 HDL Cholesterol 79 >39 mg/dL [facility] - 01 VLDL 11 5 - 40 mg/dL [facility] - 01 LDL, calculated 110(H) 0 - 99 mg/dL [facility] - 01 Blood 06/29/2024 8:30 AM CDT 06/29/2024 Narrative [facility] - 06/30/2024 2:07 AM CDT Performed at: [address] [place] [id number] Unit Secy: Lj Mckinney PhD, Phone: [phone] Ac Mcnulty MD LAB BLOOD ORDERABLES Final Re sult Performing Organization Address [facility]/ZIP Co de Phone Number [facility] - 01 * Comprehensive metabolic panel (06/29/2024 8:30 AM CDT) [facility] Signature Glucose 88 70 - 99 mg/dL [facility] [...] - 06/30/2024 2:07 AM CDT Performed at: - [facility] [id number] Unit Secy: Lj Mckinney PhD, Phone: [phone] us Ac Mcnulty MD LAB BLOOD ORDERABLES Final Re sult Performing Organization Address [facility]/State/ZIP Co de Phone Number [facility] - 01 from Last 3 Months Insurance BLUE ACC CHOICE OOS [employer] [facility] CHOICE OOS Care Teams Exchange Trouble Shooter Relationship Specialty Start Date End Date Ac Mcnulty MD PCP - General Family Medicine 10/29/23
--- OUTSIDE RECORDS SUMMARY | 2024-08-02 12:03 | XMS_ITS | Data Portability ---
Author Organization [facility] [employer], Main Office Address [address] [place] [address] Assessment No assessment recorded. Plan of Treatment Reminders Order Date Submit Date Provider Last Modified By Organization Details Last Modified Time Details Appointments None recorded. Lab CBC w/ auto diff 2022 023 [email or web address] Not available 4 16:22:50 CMP, serum or plasma 2022 023 [email or web address] Not available 4 16:22:50 PT/PTT, plasma 2022 023 Not available 4 16:22:50 PT/INR 2022 023 SHANIQUE Not available 3 13:34:32 Referral None recorded. Procedures None recorded. Surgeries None recorded. Imaging electrocard iogram 2022 023 [email or web address] 11 [facility] [address], [place], [address], 3 14:48:39 Medication Orders hydrocodone 5 mg-acetamin ophen 325 mg tablet 2022 023 [id number], [address] [facility], [place], [place], [id number], 3 10:04:12 Patient TargetsNo targets recorded. Patient Instructions Encounter Date Encounter Id Patient Instructions Last Modified By Organization Details Last Modified Time 02/13/2023 [id number] is cleared for surgery with anaesthesia Not available 02/24/2023 19:15:10 Reason for Referral None Reported. Results Created Date Observation Date Name Description Value Unit Range Abnormal Flag Note LastModifiedBy Organization Detail LastModifiedTime 02/05/20 22 02/04/2022 rsv (resp irato ry syncy tial virus ), rapid , nasop haryn geal RSV negati ve Not Available [facility] [address] , [address], [place], [address], 02/04/2022 12:40:15 10/07/19 22 10/06/2021 imagi ng/di agnos tic resul t No observ ation record ed. [id number] [facility] [address], [place], [address], 05/01/2022 07:38:31 02/05/20 XR, chest , 2 view [facility] [address] [place] [address] [phone] Patien t Name: TANJA CORDERO ER Access ion #: [id number] Sex: F : 1970 1 Locati on: RA2 Attend ing Physic james: ANTHONY ALAMO Orderansley rubalcava Physic james: ANTHONY ALAMO Exam Date: 022 11:59 AM Exam Name: XR CHEST 2V Admitt ing Diagno sis(es ): RADIOL OGY REPORT - FINAL EXAM: XR CHEST 2V HISTOR Y: cough 51-yea r-old female with cough and shortn ess of breath for 2 months , former smoker . COMPAR KEON: None availa ble. TECHNI QUE: 2 views of the chest were perfor med. FINDIN GS: No pneumo thorax , pulmon lawrence edema, pleura l effusi ons, or consol idativ e infilt rates. The heart is not enlarg ed. There are bilate ral breast implan ts. No fractu res are identi fied about the bony thorax . There is mild thorac ic degene rative disc diseas e. Page 1 of 2 [facility] Patien t Name: BIANCA CORDEROKOLBYBe ER Access ion #: [id number] Sex: F : 1970 1 Exam Date: 11:59 AM Exam Name: XR CHEST 2V Admitt ing Diagno sis(es ): IMPRES CAROL: No acute intrat horaci c proces s. Create d and electr onical ly signed by: Ac ji MD Signed Date: 12:47 PM (CT) Dictat ed by: Ac ji MD DD: 12:47 PM (CT) DT: 12:47 PM (CT) Page 2 of 2 [id number] [facility] (Imaging) [address] [place], [address], 05/01/2022 07:38:31 02/05/20 22 02/04/2022 XR, chest , 2 view No observ ation record ed. MIGRATION. [address] , [place], [address], 05/01/2022 07:38:31 02/14/20 22 02/12/2022 imagi ng/di agnos tic resul t No observ ation record ed. MIGRATION. [id number] [facility] Orders [address] [place], [address], 05/01/2022 07:38:31 04/15/19 23 04/15/2022 MAMMO , scree meredith, digit al, bilat eral No observ ation record ed. [id number] [facility] Lab Orders [address] [place], [address], 05/01/2022 07:38:31 02/14/20 23 elect rocar diogr am No observ ation record ed. [email or web address] [facility] [address], [place], [address], 02/13/2023 09:56:50 03/06/19 24 02/13/2023 elect ronak queen am No observ ation record ed. [email or web address] [facility] [address], [place], [address], 03/22/2023 20:36:25 Result Notes None recorded. Problems Name Problem SNOMED Code Status Onset Date Resolution Date Notes Provider Name and Address Organization Details Recorded Time Undifferen tiated attention deficit disorder 42106675 Active 2017 Not Available [facility] 3 19:24:27 Arthritis 7120181 Active 2017 Not Available [facility] 3 19:24:28 Mitral valve prolapse 671044950 Active 2017 Not Available [facility] 3 19:24:28 Anxiety 03737740 Active 2022 Not Available [facility] 3 19:24:28 Vaginitis 46266434 Active 2022 Not Available [facility] 3 19:24:27 Pain of left hip joint 0609874923269 00 Active 2022 Not Available [facility] 3 19:24:28 Chronic low back pain 197256812 Active 2022 Not Available [facility] 3 19:24:27 Pain of right shoulder joint 0970811443519 9100 Active 2022 Not Available [facility] 3 19:24:27 Pre-surger y evaluation Active 2022 JIGNESH Salomon [address] [facility], [place], [address] , [facility] 3 09:56:01 Problem Notes None recorded. Medical Equipment None Reported. Allergies Allergen ID Allergen Name Allergen Category Reaction Reaction Severity Criticality Documentation Date Start Date Code Code System Note Provider Name and Address Organization Details Recorded Time 36986 Voltaren medicatio n Not available Not available Not available 05/01/2022 64814 6 RxNorm Not Available [facility] 3 07:38:20 Medications Name Sig Start Date Stop Date Status Note LastModified by Organization Details LastModified Time cyclobenzap rine 10 mg tablet Take 1 tablet 3 times a day by oral route as needed. active Not Available Not Available No t Available medroxyprog esterone 10 mg tablet TAKE 1 TABLET BY MOUTH EVERY DAY FOR 10 DAYS DIRECTED 03/12 completed Not Available Not Available Not Available azithromyci n 250 mg tablet TAKE 2 TABLETS (500 MG) BY ORAL ROUTE ONCE DAILY FOR 1 DAY THEN 1 TABLET (250 MG) BY ORAL ROUTE ONCE DAILY FOR 4 DAYS 02/04 completed Not Available Not Available Not Available ibuprofen 800 mg tablet 09/11 completed Not Available Not Available Not Available fluconazole 150 mg tablet TAKE 1 TABLET BY MOUTH EVERY DAY FOR 1 DAY. MAY REPEAT IN 3 DAYS NEEDED active Not Available Not Available No t Available benzonatate 200 mg capsule Take 1 capsule 3 times a day by oral route. active Not Available Not Available No t Available cephalexin 250 mg capsule 05/15 completed Not Available Not Available Not Available hydrocodone 5 mg-acetamin ophen 325 mg tablet TAKE 1 TO 2 TABLETS BY MOUTH EVERY 6 TO 8 HOURS NEEDED. MAX 6 TABLETS DAILY active Not Available Not Available No t Available ondansetron HCl 8 mg tablet 03/20 completed Not Available Not Available Not Available meloxicam 15 mg tablet TAKE 1 TABLET BY MOUTH EVERY DAY active Not Available Not Available No t Available metronidazo le 0.75 % (37.5 mg/5 gram) vaginal gel INSERT ONE APPLICATO RFUL VAGINALLY EVERY NIGHT AT BEDTIME FOR 5 NIGHTS 12/27 completed Not Available Not Available Not Available dextroamphe tamine-amph etamine 10 mg tablet TAKE 1 TABLET BY MOUTH TWICE DAILY active Not Available Not Available No t Available metronidazo le 500 mg tablet TK 1 T PO BID FOR 7 DAYS 03/12 completed Not Available Not Available Not Available phentermine 37.5 mg tablet TK 1 AND 1/2 TABLETS PO D 07/10 completed Not Available Not Available Not Available estradiol-n orethindron e acet 1 mg-0.5 mg tablet TAKE 1 TABLET BY MOUTH DAILY active Not Available Not Available No t Available hydrocodone 10 mg-acetamin ophen 325 mg tablet TAKE 1-2 TABLETS BY MOUTH EVERY 6-8 HOURS NEEDED. MAX 6 A DAY active Not Available Not Available No t Available tramadol 50 mg tablet TAKE 1 TABLET BY MOUTH EVERY 6 HOURS NEEDED FOR PAIN 2023 active Not Available Not Available Not Avai lable lamotrigine 25 mg tablet TAKE 2 TABLETS BY MOUTH EVERY NIGHT AT BEDTIME active Not Available Not Available No t Available dextroamphe tamine-amph etamine 30 mg tablet TAKE 1/2 TABLET BY MOUTH TWICE DAILY active Not Available Not Available No t Available oxycodone-a cetaminophe n 5 mg-325 mg tablet TAKE 1 TABLET BY MOUTH EVERY 6 HOURS NEEDED FOR PAIN 05/15 completed Not Available Not Available Not Available alprazolam 0.5 mg tablet TAKE 1 TABLET BY MOUTH THREE TIMES DAILY 2023 active Not Available Not Available Not Avai lable propranolol 10 mg tablet Take 1 tablet 3 times a day by oral route as needed for 30 days. 01/18 completed Not Available Not Available Not Available methocarbam ol 750 mg tablet 05/15 completed Not Available Not Available Not Available oxycodone-a cetaminophe n 10 mg-325 mg tablet TAKE 1 TO 2 TABLETS BY MOUTH EVERY 6 TO 8 HOURS NEEDED . MAX OF 6 TABLETS PER DAY active Not Available Not Available No t Available dextroamphe tamine-amph etamine ER 20 mg 24hr capsule,ext end release TAKE 1 CAPSULE BY MOUTH EVERY DAY IN THE MORNING 05/15 completed Not Available Not Available Not Available progesteron e micronized 200 mg capsule TK ONE C PO QD FOR 12 DAYS IN THE EVENING SEQUENTIA LLY PER 28 DAY CYCLE 12/27 completed Not Available Not Available Not Available dextroamphe tamine-amph etamine 15 mg tablet TAKE 1 TABLET BY MOUTH TWICE DAILY active Not Available Not Available No t Available docusate sodium 100 mg capsule TAKE ONE CAPSULE BY MOUTH DAILY 05/15 completed Not Available Not Available Not Available Adderall XR 10 mg capsule,ext ended release TK 1 C PO QD 12/27 completed Not Available Not Available Not Available mupirocin 2 % topical ointment APPLY TOPICALLY TO THE AFFECTED AREA TWICE DAILY active Not Available Not Available No t Available hydroxychlo roquine 200 mg tablet TK 2 TS PO D active Not Available Not Available No t Available ibuprofen 600 mg tablet TAKE 1 TABLET BY MOUTH TWICE DAILY WITH FOOD OR MILK NEEDED active Not Available Not Available No t Available methylpredn isolone 4 mg tablets in a dose pack FOLLOW PACKAGE DIRECTION S active Not Available Not Available No t Available dextroamphe tamine-amph etamine ER 30 mg 24hr capsule,ext end release 05/15 completed Not Available Not Available Not Available progesteron e micronized 100 mg capsule TK ONE C PO D 12/27 completed Not Available Not Available Not Available amoxicillin 875 mg-potassiu m clavulanate 125 mg tablet Take 1 tablet every 12 hours by oral route. active Not Available Not Available No t Available Adderall XR 15 mg capsule,ext ended release TK 1 C PO QD active Not Available Not Available No t Available Prempro 0.3 mg-1.5 mg tablet TAKE 1 TABLET BY MOUTH EVERY DAY active Not Available Not Available No t Available estradiol 0.045 mg-levonorg estrel 0.015 mg/24hr weekly transderm patch Apply 1 patch every week by transderm al route. active Not Available Not Available No t Available Tri-Sprinte c (28) 0.18 mg(7)/0.215 mg(7)/0.25 mg(7)-0.035 mg tablet Take 1 tablet every day by oral route. active Not Available Not Available No t Available duloxetine 30 mg capsule,del ayed release TAKE 1 CAPSULE BY MOUTH EVERY MORNING active Not Available Not Available No t Available zolpidem ER 6.25 mg tablet,exte nded release,mul tiphase TAKE 1 TABLET BY MOUTH EVERY DAY active Not Available Not Available No t Available Keflex 750 mg capsule Take 1 capsule twice a day by oral route for 5 days. 05/15 completed Not Available Not Available Not Available Dayvigo 5 mg tablet active Not Available Not Available No t Available Dayvigo 10 mg tablet Take 1 tablet every day by oral route at bedtime. 05/15 completed Not Available Not Available Not Available Flowflex COVID-19 Antigen Home Test kit 04/24 completed Not Available Not Available Not Available Vitals Date Recorded Body mass index (BMI) Body height Oxygen saturation Oxygen saturation in Arterial blood by Pulse oximetry Heart rate Body temperature Body weight Systolic blood pressure Diastolic blood pressure Provider Name and Address Organization Details Last Updated DateTime 3 27.6 kg/m2 167.64 cm 98 % 98 % 106 /min 97.8 [degF] 38581.3 g 142 mm[Hg] 80 mm[Hg] Not Available [facility] 3 07:28:19 Date Recorded Body mass index (BMI) Body height Body weight Provider Name and Address Organization Details Last Updated DateTime 06/11/2021 23.7 kg/m2 167.64 cm 54559.08 g Not Available [facility] 05/01/2022 07:28:23 Date Recorded Body height Body mass index (BMI) Body weight Body temperature Heart rate Oxygen saturation Oxygen saturation in Arterial blood by Pulse oximetry Systolic blood pressure Diastolic blood pressure Provider Name and Address Organization Details Last Updated DateTime 3 167.64 cm 27.6 kg/m2 63605.3 g 96.4 [degF] 100 /min 99 % 99 % 142 mm[Hg] 70 mm[Hg] GILSON Yan [place] [employer] 3 16:37:00 Date Recorded Body mass index (BMI) Body height Oxygen saturation Oxygen saturation in Arterial blood by Pulse oximetry Heart rate Body temperature Body weight Systolic blood pressure Diastolic blood pressure Provider Name and Address Organization Details Last Updated DateTime 2 27 kg/m2 167.64 cm 98 % 98 % 90 /min 96.4 [degF] 01789.9 3 g 100 mm[Hg] 70 mm[Hg] Not Available [facility] 3 07:28:19 Date Recorded Body height Body mass index (BMI) Body weight Heart rate Body temperature Oxygen saturation Oxygen saturation in Arterial blood by Pulse oximetry Systolic blood pressure Diastolic blood pressure Provider Name and Address Organization Details Last Updated DateTime 3 167.64 cm 27.6 kg/m2 32171.3 g 89 /min 98 [degF] 99 % 99 % 122 mm[Hg] 64 mm[Hg] Yakelin Ruiz [place] [employer] 3 09:48:38 Social History Question Answer Notes LastModified by Organizat ion Details LastModified Time Tobacco Smoking Status Unknown If Ever Smoked Not Available [facility] 05/01/2022 07:26:42 What Was The Date Of Your Most Recent Tobacco Screening? 06/11/2021 [id number] Information not available 05/01/2022 Sex: Unknown Functional Status Question Answer Note LastModified by Organizat ion Details LastModified Time What is your level of alcohol consumption? Occasional [id number] Information not available 05/01/2022 Mental Status None recorded. Family History Relationship Description Onset Age of this Age Resolved Age Notes LastModified by Organization Details LastModified Time Father Heart disease [id number] Not available 05/01/2022 07:26:58 Father Family history of stroke [id number] Not available 05/01/2022 07:26:58 Father Hypertensive disorder [id number] Not available 05/01/2022 07:26:58 Father Deep venous thrombosis [id number] Not available 05/01/2022 07:26:58 Father Kidney disease [id number] Not available 05/01/2022 07:26:58 Medical History Condition Response ARTHRITIS Y Gynecological HistoryNo gynecological history recorded. Obstetrics History GPAL:G 0 P 0 0 0 0 Immunizations Vaccine Type Date Status Note Provider Nam e and Address Organization Details Recorded Time zoster recombinant 2 completed Not Available [facility] 12/18/2022 19:24:28 Past Encounters Encounter ID Performer Location Encounter Start Date Encounter Closed Date Diagnosis/Indication Diagnosis SNOMED-CT Code Diagnosis ICD10 Code Diagnosis Note [id number] Anhtony Sanders MD [facility] [address] [place] [address] 09/11/2020 00:00:00 09/11/2020 20:41:35 [id number] Anthony Sanders MD [facility] [address] earl [facility] [place] [address] 05/15/2021 00:00:00 05/15/2021 22:23:01 [id number] Guzman Hensley MD [address], [address] [address] 06/11/2021 00:00:00 06/11/2021 16:43:45 [id number] Anthony Sanders MD [facility] [place] [address] 02/04/2022 00:00:00 02/04/2022 21:04:14 [id number] Anthony Sanders MD [facility] [address] [facility] [place] [address] 04/24/2022 00:00:00 04/25/2022 06:27:22 [id number] Anthony Sanders MD [facility] [place] [address] [place] [address] [place] [address] 08/29/2022 16:31:34 08/29/2022 16:57:36 Pain of left hip joint 5135144824 90230 M25.552 F/u with ortho and continue PT Chronic low back pain 27 8757262 M54.50 Continue tramadol Pain of ri ght shoulder joint 0536440347 6949855 M25.511 Torn labrum [id number] Anthony Sanders MD [facility] [address]ia earl [address] [facility] [place] [address] 02/13/2023 09:36:15 02/13/2023 10:47:35 Pre-surgery evaluation 293487802 Z01.818 Pain of le ft hip joint 5045923393 43289 M25.552 Health Concerns Section Related Observation LastModified by Organization Detai ls LastModified Time None Recorded Concern Status LastModified by Organization Details LastModified Time None Recorded Advance Directives Directive None Recorded Payers Encounter Date Sequence Insurance Name Policy Number Policy Leon Covered Member ID Leon Member ID Guarantor Name 08/29/2022 1 [employer] [id number] Orlin Cordero [id number] Gaye Cordero 02/13/2023 1 [employer] [id number] Orlin Cordero [id number] Gaye Cordero Notes Date Note Type Note Provider Name and Address Organization Details Recorded Time 08/29/2022 text/html Here today for med f/u. Has left hip pain and back pain. Needs hip replacement. Seeing ortho at [facility]. Going to have PT and is hoping this will help. Has meds for pain and if hurts will sit. Takes tramadol and it helps. Takes 2 in the am and 2 in the pm. Anthony Sanders MD [address], [facility] [address], [place], [address], [employer] 08/29/2022 19:26:14 02/13/2023 text/html needs clearance , left hip surgery JIGNESH Salomon [address] [facility] [address], [place], [address], [employer] 02/24/2023 19:15:18 OBGyn Episode No OBEpisode recorded.
== END 2024-08-02 11:36 | disposition home or self-care (01) ==
LOC: ANHSURGERY 11:41
PROVIDERS: PCP Family Medicine; Visit Provider Obstetrics & Gynecology
DX: Z12.2 Encounter for screening for malignant neoplasm of respiratory organs (principal); Z87.891 Personal history of nicotine dependence; N39.3 Stress incontinence (female) (male)
CPT/HCPCS: 36415; 86850; 86900; 86901; 93005

== ENCOUNTER 2024-08-05 01:31 | Day surgery (SDC) | payer BC, SELFPAY ==
--- NOTE | 2024-08-02 08:48 | PC.NURSE ---
Report to the Outpatient Waiting Room, entrance under the green pavilion located off [facility], at time __0600am on date __08/05/24 . Planned Procedure Time: __0730am .? Time changes happen often and if your time is changed the preop area will call you the afternoon before. - You and your visitor will be asked to self-screen and do not enter if you have any COVID symptoms. Please call surgeon if you need to reschedule. - A mask is optional within the hospital at this time. Patients may have clear liquids (water, carbonated beverages, clear teas, apple juice) until 3 hours prior to surgery with a maximum of 20 ounces. - No food from midnight until time of surgery and no smoking, or chewing tobacco (or any form of nicotine). No chewing gum, candy or mints. (0430am) Take only the following medications with a SIP of water on the morning of surgery: Lamotrigine and Duloxetine DO NOT STOP ANY OF YOUR OTHER PRESCRIPTION MEDICATIONS PRIOR TO SURGERY EXCEPT THE FOLLOWING Hold all vitamins and supplements for 3 days per anesthesiologist. Medications to discontinue per physician None Date to take last dose None Please no make-up, nail spanish, hairspray, perfume, deodorant, or body powder the day of surgery.? No jewelry (including any body piercings) or valuables the day of surgery, leave them at home.? Please take a shower or bath the night before, or the morning of, surgery with an antibacterial soap.? Wear comfortable, loose fitting clothing.? - Jewelry must be removed prior to entering the operating room.? Rings and piercings that are not removed may be cut off. - The hospital will not accept responsibility for valuables.? - Please leave all valuables, including medications, at home the day of surgery. If you are going home after surgery, a licensed local flatbed driver must drive you home.? - NO public transportation without another adult if you receive anesthesia. - We recommend that an adult stay with you for 24 hours following discharge. - We also recommend that you do not drive, make important decision, drink alcoholic beverages, or take any drugs that were not prescribed by your health care provider for at least 24 hours after your discharge time. Follow any additional instructions given to you from your surgeon. Telephone instructions given to __Patient and asked if any additional questions and then verbalized understanding. Patient advised to call surgeon office or pre surgery nurse liaison [phone] if any additional questions.
--- NOTE | 2024-08-03 07:04 | PM.IMHP ---
H&P: HPI History of Present Illness Date/Time: 08/03/24 07:04 Chief Complaint: Stress urinary incontinence Narrative: This is a 53-year-old 2 para 2 admitted for robotic total vaginal hysterectomy secondary to stress urinary. The patient complains of loss of urine with coughing laughing and sneezing. She finds is socially embarrassing. Exam in the office shows definitive hyper reactivity to Valsalva maneuver with loss of urine. Risks and benefits of this procedure reviewed including but not exclusive of , aspiration pneumonia, bleeding, transfusion, perforation injury to bowel, bladder, ureters, or other internal organs with need for open laparotomy. The risk of mesh erosion into the bladder etc. were reviewed. She had all questions answered and asked to proceed Review of Systems Review of Systems: CONSTITUTIONAL: Denies body aches, fever, chills, or sweats. EYES: Denies visual changes, redness, or discharge. ENT: Denies rhinorrhea, congestion, sore throat, or otalgia. CARDIOVASCULAR: Denies chest pain, palpitations, or edema. RESPIRATORY: Denies cough or dyspnea. GASTROINTESTINAL: Denies abdominal pain, nausea, vomiting, or diarrhea. GENITOURINARY: Denies dysuria or hematuria. SKIN: Denies rash, itching, or wounds. MUSCULOSKELETAL: Denies back pain, or myalgia.+Left ankle injury NEUROLOGIC: Denies headache, numbness, or weakness.+Tingling in ankle and foot PSYCH: Denies depression or anxiety. 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 (~2018) Lazy eye Arthritis Surgical History Surgical History Hx of tubal ligation History of hip replacement right done at [place] posterior approach around 2012 Family History Family History Sibling History of kidney cancer Melanoma Father Vascular dementia Hx of blood clots Cerebrovascular accident Hypertension Grandparent Acute myocardial infarction Brain tumor Mother Arthritis Other Family history of arthritis Social History Social History Smoking packs per day: 1 Smoking cigarettes per day: 20.0 Years smoked: 34 Smoking pack-years: 34.00 Smoking status: Former smoker Tobacco type: cigarettes Smoking end date: 03/13/10 Alcohol intake: current Drinks per week: 1 Alcohol use details: Couple a Month Substance use: current Substance use type: marijuana Other substance usage details: Uses gummy to help sleep Living arrangements: with family Additional living arrangements comments: Spiritual care concerns: No Meds Home Medications and Allergies Home Medications ?Medication ?Instructions ?Recorded ?Confirmed ?Type hydroxychloroquine 200 mg tablet 200 mg PO DAILY 11/14/21 08/02/24 History duloxetine 60 mg capsule,delayed 60 mg PO DAILY 08/02/24 08/02/24 History release estradiol-norethindrone acet 1 1 tablet PO DAILY 08/02/24 08/02/24 History mg-0.5 mg tablet folic acid 1 mg tablet 1 mg PO DAILY 08/02/24 08/02/24 History lamotrigine 25 mg tablet 50 mg PO DAILY 08/02/24 08/02/24 History lisdexamfetamine 50 mg capsule 50 mg PO .AM 08/02/24 08/02/24 History methotrexate sodium 2.5 mg tablet 12.5 mg PO .BID 08/02/24 08/02/24 History pantoprazole 40 mg tablet,delayed 40 mg PO DAILY 08/02/24 08/02/24 History release Allergies Allergy/AdvReac Type Severity Reaction Status Date / Time oxycodone Allergy Intermediate Rash Verified 08/02/24 08:26 diclofenac Allergy Unknown Hives Verified 08/02/24 08:26 Exam Const: General: cooperative, healthy appearing and comfortable Nutritional Appearance: average body habitus Orientation/consciousness: oriented to person, oriented to place and oriented to time HENMT: Head: normal to inspection Resp: Effort & Inspection: normal respiratory effort Cardio: Rate: regular rate Rhythm: regular rhythm Heart sounds: S1 normal heart sound present and S2 normal heart sound present GI: Inspection: normal to inspection : Speculum Exam - Vagina: normal appearance of the vagina and other (Hyper reactivity of urethra with Valsalva) Speculum Exam - Cervix: normal appearance of the cervix Bimanual exam- vagina & uterus: non-tender Bimanual Exam- Adnexa, other: normal adnexae Assessment and Plan Assessment and plan (1) Primary stress urinary incontinence: Code(s): N39.3 - Stress incontinence (female) (male) Status: Acute Plan Proceed with cystoscopy and tension-free vaginal tape
[2024-08-05] VITALS (9 sets, daily range): BP systolic 111–139; BP diastolic 63–90; PULSE 57–83; RESP 12–19; TEMP 36.4–37; O2SAT 97–100
--- OUTSIDE RECORDS SUMMARY | 2024-08-05 01:35 | XMS_ITS | Referral Summary ---
Author Organization [facility] Virtual Care Address [address] [place] [address] Phone Care Team Providers Care Car Deliverer Name Role Phone Ac Mcnulty MD Primary Care Provider [phone] Encounters Date Type Department Care Team Description 06/29/2024 Results Follow-Up [facility] Medical [facility] Family Medicine at [address] [place] [address] Ac Mcnulty MD CBC with auto differential 05/17/2024 1:30 PM CDT Office Visit [facility] Family Medicine at [address] [place] [address] Ac Mcnulty MD Annual physical exam (Primary Dx) 05/12/2024 Orders Only [facility] Family Medicine at [address] [place] [address] Ac Mcnulty MD from Last 3 Months [...] 02/09/2024 Assessment & Plan (02/09/2024 9:17 PM OUTSIDE SALES INSPECTOR): - Initiate Clobetasol 0.05% ointment BID - [...] 05/17/2024 Assessment & Plan (02/09/2024 9:18 PM OUTSIDE SALES INSPECTOR): - COVID/flu/strep POC testing in office today [...] on file Legal Sex Female 4:03 PM OUTSIDE SALES INSPECTOR Gender Identity Female 05/05/2023 1:51 PM OUTSIDE SALES INSPECTOR Sexual Orientation Not on file Last Filed Vital Signs Vital Sign Reading Time Taken Comments Blood Pressure 110/72 05/17/2024 1:52 PM CDT Pulse 80 05/17/2024 1:52 PM CDT Temperature 36.8 C (98.2 F) 05/17/2024 1:52 PM CDT Respiratory Rate 18 02/09/2024 11:06 AM OUTSIDE SALES INSPECTOR Oxygen Saturation 98% 05/17/2024 1:52 PM CDT [...] - 06/30/2024 3:35 AM CDT Performed at: [address] [place] [id number] [employer] Lab Technician: Lj Mckinney PhD, Phone: [phone] us Ac Mcnulty MD LAB BLOOD ORDERABLES [...] - 06/30/2024 3:35 AM CDT Performed at: [address] [place] [id number] [employer] Lab Technician: Lj Mckinney PhD, Phone: [phone] us Ac Mcnulty MD LAB BLOOD ORDERABLES Final Re sult Performing Organization Address City/[facility]/ZIP Co de Phone Number [facility] - * (ABNORMAL) Thyroid Function Knott (06/29/2024 8:30 AM CDT) Pathologist [facility] TSH 0.212(L) 0.450 - 4.500 uIU/mL [facility] - 01 Blood 06/29/2024 8:30 AM CDT 06/29/2024 Narrative [facility] - 06/30/2024 3:35 AM CDT Performed at: [address] [place] [address] [employer] Lab Technician: Lj Mckinney PhD, Phone: [phone] Ac Mcnulty MD LAB BLOOD ORDERABLES Final Re sult Performing Organization Address [facility] Co de Phone Number [facility] [...] - 06/30/2024 12:07 AM CDT Performed at: [address] [place] [id number] [employer] Lab Technician: Lj Mckinney PhD, Phone: [phone] us Ac Mcnulty MD LAB BLOOD ORDERABLES Final Re sult [facility] - 01 * (ABNORMAL) Lipid panel (06/29/2024 8:30 AM CDT) [facility] Cholesterol 200(H) 100 - 199 mg/dL [facility] - 01 Triglycerides 61 0 - 149 mg/dL [facility] - 01 HDL Cholesterol 79 >39 mg/dL [facility] - 01 VLDL 11 5 - 40 mg/dL [facility] - 01 LDL, calculated 110(H) 0 - 99 mg/dL [facility] - 01 Blood 06/29/2024 8:30 AM CDT 06/29/2024 Narrative [facility] - 06/30/2024 2:07 AM CDT Performed at: [address] [place] [id number] [employer] Lab Technician: Lj Mckinney PhD, Phone: [phone] Ac Mcnulty MD LAB BLOOD ORDERABLES Final Re sult Performing Organization Address [facility]/ZIP Co de Phone Number [facility] - 01 * Comprehensive metabolic panel (06/29/2024 8:30 AM CDT) [facility] Signature Glucose 88 70 - 99 mg/dL [...] 06/30/2024 2:07 AM CDT Performed at: - [facility] [id number] [employer] Lab Technician: Lj Mckinney PhD, Phone: [phone] us Ac Mcnulty MD LAB BLOOD ORDERABLES Final Re sult Performing Organization Address [facility]/State/ZIP Co de Phone Number [facility] - 01 from Last 3 Months Insurance BLUE ACC CHOICE OOS [employer] [facility] CHOICE OOS Care Teams Car Deliverer Relationship Specialty Start Date End Date Ac Mcnulty MD PCP - General Family Medicine 10/29/23
--- OUTSIDE RECORDS SUMMARY | 2024-08-05 01:35 | XMS_ITS | Encounter Summary ---
Author Organization [facility] Healthcare Address [address] [place] [address] Care Team Providers Care Planimeter Operator Name Role Phone Ac Mcnulty MD Primary Care Provider [phone] Encounter Details Date Type Department Care Team (Late st Contact Info) Description 05/12/2024 Orders Only [facility] Medical Group Family Medicine at [address] [place] [address] Ac Mcnulty MD [address] [place] [address] [address] [place] [address] Social History Tobacco Use Types Packs/Day Years [...] on file Legal Sex Female 4:03 PM SPOUT POSITIONER Gender Identity Female 05/05/2023 1:51 PM SPOUT POSITIONER Sexual Orientation Not on file documented as of this encounter Plan of Treatment Not on file documented as of this encounter Visit Diagnoses Not on filedocumented in this encounter Care Teams Planimeter Operator Relationship Specialty Start Date End Date Ac Mcnulty MD PCP - General Family Medicine 10/29/23 documented as of this encounter
--- OUTSIDE RECORDS SUMMARY | 2024-08-05 01:35 | XMS_ITS | Data Portability ---
Author Organization [facility], Main Office Address [address] [place] [address] Assessment No assessment recorded. Plan of Treatment Reminders Order Date Submit Date Provider Last Modified By Organization Details Last Modified Time Details Appointments None recorded. Lab CBC w/ auto diff 2022 023 Not available 4 16:22:50 CMP, serum or plasma 2022 023 Not available 4 16:22:50 PT/PTT, plasma 2022 023 [email or web address] Not available 4 16:22:50 PT/INR 2022 023 SHANIQUE Not available 3 13:34:32 Referral None recorded. Procedures None recorded. Surgeries None recorded. Imaging electrocard iogram 2022 023 atolliver 11 [facility] [address], [place], [address], 3 14:48:39 Medication Orders hydrocodone 5 mg-acetamin ophen 325 mg tablet 2022 023 [id number], [address] [facility], [place], [place], [id number], 3 10:04:12 Patient TargetsNo targets recorded. Patient Instructions Encounter Date Encounter Id Patient Instructions Last Modified By Organization Details Last Modified Time 02/13/2023 [id number] is cleared for surgery with anaesthesia [email or web address] Not available 02/24/2023 19:15:10 Reason for Referral None Reported. Results Created Date Observation Date Name Description Value Unit Range Abnormal Flag Note LastModifiedBy Organization Detail LastModifiedTime 02/05/20 22 02/04/2022 rsv (resp irato ry syncy tial virus ), rapid , nasop haryn geal RSV negati ve Not Available [facility] [address] , [address], [place], [address], 02/04/2022 12:40:15 10/07/19 22 10/06/2021 imagi ng/di agnos tic resul t No observ ation record ed. [id number] [facility] [address], [place], [address], 05/01/2022 07:38:31 02/05/20 XR, chest , 2 view [facility] [address] [place] [address] Patien t Name: TANJA CORDERO ER Access ion #: [id number] Sex: F : 1970 1 Locati [...] disc diseas e. Page 1 of 2 [facility] Patien t Name: BIANCA CORDEROKOLBYBe ER Access ion #: [id number] Sex: F : 1970 1 Exam Date: 11:59 AM Exam Name: XR CHEST 2V Admitt ing Diagno sis(es ): IMPRES CAROL: No acute intrat horaci c proces s. Create d and electr onical ly signed by: Ac ji MD Signed Date: 12:47 PM (CT) Dictat ed by: Ac ji MD DD: 12:47 PM (CT) DT: 12:47 PM (CT) Page 2 of 2 [id number] [facility] (Imaging) [address] [place], [address], 05/01/2022 07:38:31 02/05/20 22 02/04/2022 XR, chest , 2 view No observ ation record ed. MIGRATION. [address] , [place], [address], 05/01/2022 07:38:31 02/14/20 22 02/12/2022 imagi ng/di agnos tic resul t No observ ation record ed. MIGRATION. [id number] [facility] Add On Lab Orders [address] [place], [address], 05/01/2022 07:38:31 04/15/19 23 04/15/2022 MAMMO , scree meredith, digit al, bilat eral No observ ation record ed. [id number] [facility] On Lab Orders [address] [place], [address], 05/01/2022 07:38:31 02/14/20 23 elect rocar diogr am No observ ation record ed. [facility] [address], [place], [address], 02/13/2023 09:56:50 03/06/19 24 02/13/2023 elect ronak queen am No observ ation record ed. [email or web address] [facility] [address], [place], [address], 03/22/2023 20:36:25 Result Notes None recorded. Problems Name Problem SNOMED Code Status Onset Date Resolution Date Notes Provider Name and Address Organization Details Recorded Time Undifferen tiated attention deficit disorder 03212143 Active 2017 Not Available [facility] 3 19:24:27 Arthritis 9682226 Active 2017 Not Available [facility] 3 19:24:28 Mitral valve prolapse 164213307 Active 2017 Not Available [facility] 3 19:24:28 Anxiety 69726537 Active 2022 Not Available [facility] 3 19:24:28 Vaginitis 50523888 Active 2022 Not Available [facility] 3 19:24:27 Pain of left hip joint 2707766807803 00 Active 2022 Not Available [facility] 3 19:24:28 Chronic low back pain 739468075 Active 2022 Not Available [facility] 3 19:24:27 Pain of right shoulder joint 6675386004347 9100 Active 2022 Not Available [facility] 3 19:24:27 Pre-surger y evaluation Active [address] [address], [place], [address] , [facility] 3 09:56:01 Problem Notes None recorded. Medical Equipment None Reported. Allergies Allergen ID Allergen Name Allergen Category Reaction Reaction Severity Criticality Documentation Date Start Date Code Code System Note Provider Name and Address Organization Details Recorded Time 32503 Voltaren medicatio n Not available Not available Not available 05/01/2022 49477 6 RxNorm Not Available [facility] 3 07:38:20 Medications Name Sig Start Date [...] % 98 % 106 /min 97.8 [degF] 38843.3 g 142 mm[Hg] 80 mm[Hg] Not Available [facility] 3 07:28:19 Date Recorded Body mass index (BMI) Body height Body weight Provider Name and Address Organization Details Last Updated DateTime 06/11/2021 23.7 kg/m2 167.64 cm 66733.08 g Not Available [facility] 05/01/2022 07:28:23 Date Recorded Body height Body mass index (BMI) Body weight Body temperature Heart rate Oxygen saturation Oxygen saturation in Arterial blood by Pulse oximetry Systolic blood pressure Diastolic blood pressure Provider Name and Address Organization Details Last Updated DateTime 3 167.64 cm 27.6 kg/m2 09567.3 g 96.4 [degF] 100 /min 99 % 99 % 142 mm[Hg] 70 mm[Hg] GILSON Yan ND [employer] 3 16:37:00 Date Recorded Body mass index (BMI) Body height Oxygen saturation Oxygen saturation in Arterial blood by Pulse oximetry Heart rate Body temperature Body weight Systolic blood pressure Diastolic blood pressure Provider Name and Address Organization Details Last Updated DateTime 2 27 kg/m2 167.64 cm 98 % 98 % 90 /min 96.4 [degF] 80903.9 3 g 100 mm[Hg] 70 mm[Hg] Not Available [facility] 3 07:28:19 Date Recorded Body height Body mass index (BMI) Body weight Heart rate Body temperature Oxygen saturation Oxygen saturation in Arterial blood by Pulse oximetry Systolic blood pressure Diastolic blood pressure Provider Name and Address Organization Details Last Updated DateTime 3 167.64 cm 27.6 kg/m2 28233.3 g 89 /min 98 [degF] 99 % 99 % 122 mm[Hg] 64 mm[Hg] Yakelin Ruiz MA [facility] 3 09:48:38 Social History Question Answer Notes LastModified by Organizat ion Details LastModified Time Tobacco Smoking Status Unknown If Ever Smoked Not Available [facility] 05/01/2022 07:26:42 What Was The Date Of Your Most Recent Tobacco Screening? 06/11/2021 [id number] Information not available 05/01/2022 Sex: Unknown Functional Status Question Answer Note LastModified by Organizat ion Details LastModified Time What is your level of alcohol consumption? Occasional [id number] Information not available 05/01/2022 Mental Status None recorded. Family History Relationship Description Onset Age of this Age Resolved Age Notes LastModified by Organization Details LastModified Time Father Heart disease [id number] Not available 05/01/2022 07:26:58 Father Family history of stroke [id number] Not available 05/01/2022 07:26:58 Father Hypertensive disorder [id number] Not available 05/01/2022 07:26:58 Father Deep venous thrombosis [id number].354 [id number] Not available 05/01/2022 07:26:58 Father Kidney disease [id number].371 [id number] Not available 05/01/2022 07:26:58 Medical History Condition [...] SNOMED-CT Code Diagnosis ICD10 Code Diagnosis Note [id number] Anthony Sanders MD [facility] [address] [place] [address] 09/11/2020 00:00:00 09/11/2020 20:41:35 [id number] Anthony Sanders MD [facility] Natalia earl [facility] [place] [address] 05/15/2021 00:00:00 05/15/2021 22:23:01 [id number] Guzman Hensley MD [address], [address] [address] 06/11/2021 00:00:00 06/11/2021 16:43:45 [id number] Anthony Sanders MD [facility] [place] [address] 02/04/2022 00:00:00 02/04/2022 21:04:14 [id number] Anthony Sanders MD [facility] Natalia llmargy [address] [facility] [place] [address] 04/24/2022 00:00:00 04/25/2022 06:27:22 [id number] Anthony Sanders MD [facility] G[place] mady [address] [place] [address] [place] [address] 08/29/2022 16:31:34 08/29/2022 16:57:36 Pain of left hip joint 2676964256 07591 M25.552 F/u with ortho and continue PT Chronic low back pain 27 5499919 M54.50 Continue tramadol Pain of ri ght shoulder joint 5101838335 7467528 M25.511 Torn labrum [id number] Anthony Sanders MD [facility] Natalia earl [address] [facility] [place] [address] 02/13/2023 09:36:15 02/13/2023 10:47:35 Pre-surgery evaluation 439663519 Z01.818 Pain of le ft hip joint 3791589239 57819 M25.552 Health Concerns Section Related Observation LastModified by Organization Detai ls LastModified Time None Recorded Concern Status LastModified by Organization Details LastModified Time None Recorded Advance Directives Directive None Recorded Payers Encounter Date Sequence Insurance Name Policy Number Policy Leon Covered Member ID Leon Member ID Guarantor Name 08/29/2022 1 [employer] [id number] Orlin Cordero [id number] Gaye Cordero 02/13/2023 1 [employer] [id number] Orlin Cordero [id number] Gaye Cordero Notes Date Note Type Note Provider Name and Address Organization Details Recorded Time 08/29/2022 text/html Here today for med f/u. Has left hip pain and back pain. Needs hip replacement. Seeing ortho at [facility]. Going to have PT and is hoping this will help. Has meds for pain and if hurts will sit. Takes tramadol and it helps. Takes 2 in the am and 2 in the pm. Anthony Sanders MD [address], [facility] [address], [place], [address], [facility] 08/29/2022 19:26:14 02/13/2023 text/html needs clearance , left hip surgery JIGNESH Salomon [address] [facility] [address], [place], [address], [facility] 02/24/2023 19:15:18 OBGyn Episode No OBEpisode recorded.
--- OUTSIDE RECORDS SUMMARY | 2024-08-05 01:35 | XMS_ITS | Encounter Summary ---
Author Organization [facility] Healthcare Address [address] [place] [address] Care Team Providers Care Wilderness Guide Name Role Phone Ac Mcnulty MD Primary Care Provider [phone] Encounter Details Date Type Department Care Team (Late st Contact Info) Description 06/29/2024 Results Follow-Up [facility] Medical Group Family Medicine at [address] [place] [address] Ac Mcnulty MD [address] [place] [address] [address] [place] [address] CBC with auto differential Social History Tobacco [...] on file Legal Sex Female 4:03 PM INSPECTOR FABRIC Gender Identity Female 05/05/2023 1:51 PM INSPECTOR FABRIC Sexual Orientation Not on file documented as of this encounter Plan of Treatment Not on file documented as of this encounter Visit Diagnoses Not on filedocumented in this encounter Care Teams Wilderness Guide Relationship Specialty Start Date End Date Ac Mcnulty MD PCP - General Family Medicine 10/29/23 documented as of this encounter
--- OUTSIDE RECORDS SUMMARY | 2024-08-05 01:35 | XMS_ITS | Data Portability ---
Author Organization [facility] Address [address] [place] [address] [place] [address] Assessment No assessment recorded. Plan of Treatment Reminders Order Date Submit Date Provider Last Modified By Organization Details Last Modified Time Details Appointments None recorded. Lab None recorded. Referral None recorded. Procedures None recorded. Surgeries hysterosco py, surgical, with biopsy of endometriu m and/or polypectom y (SURG) [address], [address], [address], [place], [address], 0 20:47:15 Imaging US, transvagin al [address], [address], [address], [place], [address], 0 22:00:25 Medication Orders Collison 5 mg-325 mg tablet 2019 INTERFACE [facility][id number], [address] [facility], [place], [place], [id number], 0 10:53:38 Xanax 0.5 mg tablet 2019 [facility]FACE [facility] #[id number], [address] [facility], [place], [id number], 0 10:53:37 ibuprofen 800 mg tablet 2019 020 INTERFACE [facility] #[id number], [address], [place], [place], [id number], 0 10:53:36 Zofran 8 mg tablet 2019 020 INTERFACE [facility] #[id number], [address], [place], [place], [id number], 0 10:53:37 Patient TargetsNo targets recorded. Patient InstructionsNo instructions recorded. Reason for Referral None Reported. Results Created Date Observation Date Name Description Value Unit Range Abnormal Flag Note LastModifiedBy Organization Detail LastModifiedTime 09/07/19 20 US, trans vagin al No observ ation record ed. arnavran Ana [address], [place], [address], 09/09/2019 13:20:10 Result Notes None recorded. Problems Name Problem SNOMED Code Status Onset Date Resolution Date Notes Provider Name and Address Organization Details Recorded Time Genuine stress incontine nce 33198197 Active 2019 Stress incontinen ce (female) (male);Rec orded Elsewhere: No [facility]: N Practice ID: 0001 Billa ble Time: 01:00:00 PM Not Available [facility] 0 18:26:19 Bleeding 383758138 Active 2019 Abnormal uterine and vaginal bleeding, unspecifie d;Recorded Elsewhere: No Locatio n: [facility] rce: EHR Chroni c: N Practice ID: 0001 Billa ble Time: 02:45:00 PM Not Available [facility] 0 18:26:19 Problem Notes None recorded. Medical [...] Prescribe d Elsewhere : Yes Locat ion: [facility] dify By: trace [place] ncozacharyer DateTime: [...] Prescribe d Elsewhere : Yes Locat ion: [facility] dify By: trace Cross ncounter DateTime: 0 [...] Prescribe d Elsewhere : Yes Locat ion: [facility] dify By: trace Cross ncounter DateTime: 0 01:00:00 PM Not Available Not Available Not Available hydroxychl oroquine 200 mg tablet active Not Available Not Available Not Available Collison 5 mg-325 mg tablet Take 2 tablets [...] Prescribe d Elsewhere : Yes Locat ion: [facility] difilir By: smcterray [place] ncounter DateTime: 0 01:00:00 PM Not Available Not Available Not Available Vitals Date Recorded Body weight Body mass index (BMI) Body height Systolic blood pressure Diastolic blood pressure Provider Name and Address Organization Details Last Updated DateTime 09/07/2019 77835 g 25.3 kg/m2 167.64 cm 119 mm[Hg] 72 mm[Hg] Maria Guadalupe Lopez [facility] 0 10:18:01 Social History None recorded. [...] SNOMED-CT Code Diagnosis ICD10 Code Diagnosis Note [id number] Dion Castillo MD [place] [address] [address] 09/07/2019 09:40:48 09/07/2019 10:33:26 Abnormal uterine bleeding 3934421447 9100 N93.9 [id number] Dion Castillo MD [place] [address] [address] 09/07/2019 09:42:39 09/08/2019 15:16:18 Abnormal uterine bleeding 7841428866 9100 N93.9 Polyp of corpus uteri 11 764320 N84.0 This patient is a 48-year-ol d [...] ID Guarantor Name 09/07/2019 1 [employer] [id number] Orlin Cordero [id number] 09/07/2019 1 [employer] [id number] Orlin Cordero [id number] Notes Date Note Type Note Provider Name [...] that. We spent more than 15 minutes mern-ac-aefs. We are going to proceed with hysteroscopy D&C in the office. Dion Castillo MD [address], [place], [address], [place] [facility] 09/07/2019 20:08:14 OBGyn Episode No OBEpisode recorded.
--- OUTSIDE RECORDS SUMMARY | 2024-08-05 01:35 | XMS_ITS | Clinical Summary ---
Author Organization [facility] Virtual Care Address [address] [place] [phone] Phone Care Team Providers Care Clinic Nurse Name Role Phone Ac Mcnulty MD Primary Care Provider [phone] Allergies Active Allergy Reactions Criticality Noted Date [...] 02/09/2024 Assessment & Plan (02/09/2024 9:17 PM LANDSCAPE ARCHITECT AND PLANNER): - Initiate Clobetasol 0.05% ointment BID - [...] 05/17/2024 Assessment & Plan (02/09/2024 9:18 PM LANDSCAPE ARCHITECT AND PLANNER): - COVID/flu/strep POC testing in office today negative - Due to length of symptoms suspect bacterial vs viral sinusitis - Initiate Augmentin 875-125 mg BID x 10 days - Encouraged increased fluid intake and rest - May take Tylenol 1,000 mg q6h PRN for pain Encounters Date Type Department Care Team Description 06/29/2024 Results Follow-Up [facility] Family Medicine at [address] [place] [phone] Ac Mcnulty MD CBC with auto differential 05/17/2024 1:30 PM CDT Office Visit [facility] Family [facility] at [address] [place] [phone] Ac Mcnulty MD Annual physical exam (Primary Dx) 05/12/2024 Orders Only [facility] Family Medicine at [address] [place] [phone] Ac Mcnulty MD from Last 3 Months [...] on file Legal Sex Female 4:03 PM LANDSCAPE ARCHITECT AND PLANNER Gender Identity Female 05/05/2023 1:51 PM LANDSCAPE ARCHITECT AND PLANNER Sexual Orientation Not on file Obstetrics History Last Filed Vital Signs Vital Sign Reading Time Taken Comments Blood Pressure 110/72 05/17/2024 1:52 PM CDT Pulse 80 05/17/2024 1:52 PM CDT Temperature 36.8 C (98.2 F) 05/17/2024 1:52 PM CDT Respiratory Rate 18 02/09/2024 11:06 AM LANDSCAPE ARCHITECT AND PLANNER Oxygen Saturation 98% 05/17/2024 1:52 PM CDT [...] Free, Direct, S (06/29/2024 8:30 AM CDT) [facility] Signature Free T4 1.20 0.82 - 1.77 ng/dL [facility] - 01 06/29/2024 8:30 AM CDT 06/29/2024 Narrative [facility] - 06/30/2024 3:35 AM CDT Performed at: [address] [place] [id number] [employer]: Lj Mckinney PhD, Phone: [phone] Ac Mcnulty MD LAB BLOOD ORDERABLES Final Re sult Performing Organization Address [facility] de Phone Number [facility] - * [...] - 06/30/2024 3:35 AM CDT Performed at: [address] [place] [id number] [employer]: Lj Mckinney PhD, Phone: [phone] Ac Mcnulty MD LAB BLOOD ORDERABLES Final Re sult Performing Organization Address [facility] de Phone Number [facility] - * (ABNORMAL) Thyroid Function [place] (06/29/2024 8:30 AM CDT) TSH 0.212(L) 0.450 - 4.500 uIU/mL [facility] - 01 Blood 06/29/2024 8:30 AM CDT 06/29/2024 Narrative [facility] - 06/30/2024 3:35 AM CDT Performed at: [address] [place] [address], [place] [id number] [employer]: Lj Mckinney PhD, Phone: [phone] us Ac Mcnulty MD LAB BLOOD ORDERABLES Final Re sult [facility] - 01 * (ABNORMAL) CBC with auto differential (06/29/2024 8:30 AM CDT) Pathologist [facility] WBC 4.4 3.4 - 10.8 x10E3/uL [facility] [...] - 06/30/2024 12:07 AM CDT Performed at: [address] [id number] [employer]: Lj Mckinney PhD, Phone: [phone] us Ac Mcnulty MD LAB BLOOD ORDERABLES Final Re sult Performing Organization Address [facility] de [facility] - * (ABNORMAL) Lipid panel (06/29/2024 [...] - 06/30/2024 2:07 AM CDT Performed at: [address] [id number] [employer]: Lj Mckinney PhD, Phone: [phone] us Ac Mcnulty MD LAB BLOOD ORDERABLES Final Re sult Performing Organization Address [facility] de [facility] Number [facility] - * Comprehensive metabolic panel (06/29/2024 [...] 06/30/2024 2:07 AM CDT Performed at: [facility] [address] [id number] [employer]: Lj Mckinney PhD, Phone: [phone] us Ac Mcnulty MD LAB BLOOD ORDERABLES Final Re sult [facility] - 01 from Last 3 Months Insurance [facility] OOS BLUE ACC CHOICE OOS Care Teams Clinic Nurse Relationship Specialty Start Date End Date Ac Mcnulty MD PCP - General Family Medicine 10/29/23
--- OUTSIDE RECORDS SUMMARY | 2024-08-05 01:35 | XMS_ITS | Encounter Summary ---
Author Organization [facility] Address [address] [place] [address] Phone Care Team Providers Care Wall Worker Name Role Phone Anthony Sanders MD Primary Care Provider [phone] Ac Mcnulty MD Primary Care Provider [phone] Encounter Details Date Type Department Care Team (Late st Contact Info) Description 04/27/2020 Orders Only [facility] Scanning, Provider Social History Tobacco Use Types Packs/Day Years Used Date Smoking Tobacco: Never Assessed Comments Unknown Sex and Gender Information Value Date Recorded Sex Assigned at Not on file Legal Sex 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 Gender Identity Female 05/05/2023 1:51 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
--- OUTSIDE RECORDS SUMMARY | 2024-08-05 01:35 | XMS_ITS | Patient Health Record ---
Author Organization [facility] Address [address] [facility] [address] [place] [address] Care Team Providers Care Distributed Generation Project Manager Name Role Phone Gregor Gonzalez Unavailable [phone] Bang Diaz Unavailable [phone] Allergies No Known Allergies Reason For Referral [...] Risk Notes Problem Moderate recurrent major depression (60716390) Major depressive disorder, recurrent, moderate (F33.1) Active confirmed Problem Primary insomnia (F51.01) Active confirmed Problem Attention deficit hyperactivity disorder, combined type (21850639) Attention-deficit hyperactivity disorder, combined type (F90.2) Active confirmed Vital Signs Heart Rate 91 /min 11/10/2023 Height-cm 167.64 cm 11/10/2023 Blood pressure diastolic 77 mm Hg 11/10/2023 Weight-kg 73.03 kg 11/10/2023 Height 66.00 in 11/10/2023 Blood pressure systolic 127 mm Hg 11/10/2023 Weight 161.0 lbs 11/10/2023 BMI 25.98 kg/m2 11/10/2023 Encounters Encounter Location Date Provider Diagnosis [facility] [place] [facility] [address] [place] [address] 09/29/2023 Gregor Gonzalez Primary insomnia F51 .01 ; Attention-deficit hyperactivity disorder, combined type F90.2 and Mild recurrent major depression F33.0 [facility] [employer] [address] [place] [address] 11/10/2023 Gregor Gonzalez Primary insomnia F51 .01 ; Attention-deficit hyperactivity disorder, combined type F90.2 and Mild recurrent major depression F33.0 [facility] [place] [facility] [address] [place] [address] 08/18/2023 Gregor Gonzalez Major depressive disorder, recurrent, moderate F33.1 [facility] [employer] [address] [place] [address] 08/18/2023 Gregor Gonzalez [facility] [employer] [address] [place] [address] 08/29/2023 Gregor Gonzalez [facility] [employer] [address] [place] [address] 08/30/2023 Gregor Gonzalez Major depressive disorder, recurrent, moderate F33.1 [facility] [place] [facility] [address] [place] [address] 09/19/2023 Bang Diaz Major depressive disorder, recurrent, moderate F33.1 [facility] [employer] [address] [place] [address] 12/03/2023 Gregor Gonzalez Mild recurrent major depression F33.0 Assessments [...] specializing in ADHD, such as [facility] in [place]. 2. ADHD: - Patient prefers not to take stimulants; Strattera was not effective. Plan: - Explore Cognitive Behavioral Therapy (CBT) for ADHD with a specialized therapist, such as [facility] in [place]. - Follow up in six weeks to assess response to increased Duloxetine dosage and other medication adjustments. 09/29/2023 Attention-deficit hyperactivity disorder, combined type (ICD-10 - F90.2) 1. Depression and Anxiety: - Increase Duloxetine from 30 mg to 60 mg daily. . - Consider referral to a therapist specializing in ADHD, such as [facility] in [place]. 2. ADHD: - Patient prefers not to take stimulants; Strattera was not effective. Plan: - Explore Cognitive Behavioral Therapy (CBT) for ADHD with a specialized therapist, such as [facility] in [place]. - Follow up in six weeks to [...] in ADHD, such as [facility] in [place]. 2. ADHD: - Patient prefers not to take stimulants; Strattera was not effective. Plan: - Explore Cognitive Behavioral Therapy (CBT) for ADHD with a specialized therapist, such as [facility] at [facility] in [place]. 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
--- NOTE | 2024-08-05 06:35 | WPDHPUPDATE1 ---
History and Physical Update Update Date/Time: 08/05/24 06:35 History and Physical has been reviewed, including an updated exam of the patient. There are NO changes in the patient's condition. Risks, benefits, and alternatives have been discussed and questions answered. Patient agrees to proceed with procedure.
[2024-08-05] MEDS: LACTATED RINGERS 1,000 ML 30 ML IV CONT ×2 (08:00→11:10)
--- NOTE | 2024-08-05 08:55 | P.PNAN_ITS ---
Anes - Initial Pre Proc Eval Procedure: Operation Date: 08/05/24 09:30 Proposed Procedures p Tension Free Vaginal Taping - Hugo Connor MD Date/Time: 08/05/24 08:55 Surgeon: Hugo Connor MD Pre Op Diagnosis: denny Patient Data Age: 53 Gender: F Height: 1.68 m Weight: 84.7 kg Last Vital Signs Temp 37.0 C 08/05/24 08:00 Pulse 75 08/05/24 08:00 Resp 16 08/05/24 08:00 BP 123/90 08/05/24 08:00 Pulse Ox 99 08/05/24 08:00 O2 Del Method Room Air 08/05/24 08:00 Allergies Allergy/AdvReac Type Severity Reaction Status Date / Time oxycodone Allergy Intermediate Rash Verified 08/05/24 08:24 diclofenac Allergy Unknown Hives Verified 08/05/24 08:24 Home Medications ?Medication ?Instructions ?Recorded ?Confirmed ?Type hydroxychloroquine 200 mg tablet 200 mg PO DAILY 11/14/21 08/02/24 History duloxetine 60 mg capsule,delayed 60 mg PO DAILY 08/02/24 08/05/24 History release estradiol-norethindrone acet 1 1 tablet PO DAILY 08/02/24 08/02/24 History mg-0.5 mg tablet folic acid 1 mg tablet 1 mg PO DAILY 08/02/24 08/02/24 History lamotrigine 25 mg tablet 50 mg PO DAILY 08/02/24 08/02/24 History lisdexamfetamine 50 mg capsule 50 mg PO .AM 08/02/24 08/02/24 History methotrexate sodium 2.5 mg tablet 12.5 mg PO .BID 08/02/24 08/02/24 History pantoprazole 40 mg tablet,delayed 40 mg PO DAILY 08/02/24 08/02/24 History release hydrocodone 5 mg-acetaminophen 325 1 tablet PO Q4H PRN pain #20 tabs 08/05/24 Rx mg tablet Patient hx anesthesia problems: none Family hx anesthesia problems: none Results Review: All pre-operative results and documents have been reviewed as part of the pre- operative evaluation. 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 (~2018) Lazy eye Arthritis Surgical History Surgical History Hx of tubal ligation History of hip replacement right done at [facility] posterior approach around 2012 Family History Family History Sibling History of kidney cancer Melanoma Father Vascular dementia Hx of blood clots Cerebrovascular accident Hypertension Grandparent Acute myocardial infarction Brain tumor Mother Arthritis Other Family history of arthritis Social History Social History Smoking packs per day: 1 Smoking cigarettes per day: 20.0 Years smoked: 34 Smoking pack-years: 34.00 Smoking status: Former smoker Tobacco type: cigarettes Smoking end date: 03/13/10 Alcohol intake: current Drinks per week: 1 Alcohol use details: Couple a Month Substance use: current Substance use type: marijuana Other substance usage details: Uses gummy to help sleep Living arrangements: with family Additional living arrangements comments: Spiritual care concerns: No Anes - Eval Final PreProcedure Day of Procedure 08/05/24 08:55 Patient weight: obese Heart: regular rate and rhythm Lungs: clear to auscultation Airway: Mallampati scale class II Neurological: alert and oriented Last oral intake: >/= 8 hours ASA classification: III Emergent: no Anesthetic plan: proceed Anesthesia type and monitoring: general LMA and standard monitoring Results Review: All pre-operative results and documents have been reviewed as part of the pre- operative evaluation. Informed Consent: The patient's anesthetic plan and its attendant risks and benefits were discussed with the patient/family/POA. Questions were solicited and answers provided to the satisfaction of the patient/family/POA.
--- NOTE | 2024-08-05 10:35 | P.OP_ITS ---
Procedure Note - Detailed Date of Procedure 08/05/24 Pre-op Diagnosis denny Post-op Diagnosis Same Procedure Performed Tension-free vaginal tape and cystoscopy Surgeon Hugo Connor MD Anesthesia General Indications 53-year-old female with stress urinary incontinence Findings All hyper reactive urethra Description of Procedure Patient was prepped draped in sterile fashion placed dorsal lithotomy position. Under excellent general anesthesia weighted speculum placed in posterior fornix vagina. An 18 Lithuanian catheter was placed in the bladder drained clear urine. The mid suburethral incision was made and the retropubic bladder space is entered by blunt dissection bilaterally. The catheter guide was placed in the urethra and it was retracted laterally. The left retropubic bladder space was entered under 45 degree angle pubic upto35? to the fashion skin urethra was retracted to the opposite side was repeated on the contralateral side. Catheter was removed and the 70degree cystoscope inserted no injury seen. This is the catheter was replaced. The tension-free device was brought up to the tightness of an open pee on clamped sat flush. The plastic was removed and the tape cut at the suprapubic area. The incisions were the vagina was closed with running chromic. Blood loss was estimated 50cc hemostasis was assured in the instruments withdrawn. The catheter was removed the patient went recovery in satisfactory condition. All sponge, needle, instrument counts were correct. There were no immediate complications Estimated Blood Loss 50 Drains No Packing No Pathology None sent Complications No immediate complications Condition Stable Disposition PACU
[2024-08-05] MEDS: fentaNYL CITRATE INJ (*CRX) 100 MCG/2 ML VIAL 25 MCG IV PUSH ×5 (10:55→11:20)
[2024-08-05] MEDS: HYDROcodone/acetaminophen (*CRX) 5-325 MG TABLET 1 TAB PO (12:05)
== END 2024-08-05 12:36 | disposition home or self-care (01) ==
PROVIDERS: PCP Family Medicine; Visit Provider Obstetrics & Gynecology
PROC: 0TSD0ZZ Reposition Urethra, Open Approach (ICD-10-PCS; CPT 57288; principal; 2024-08-05 09:30)
DX: N39.3 Stress incontinence (female) (male) (principal); M16.0 Bilateral primary osteoarthritis of hip; F90.9 Attention-deficit hyperactivity disorder, unspecified type; M05.79 Rheumatoid arthritis with rheumatoid factor of multiple sites without organ or systems involvement; F12.90 Cannabis use, unspecified, uncomplicated; E66.9 Obesity, unspecified; Z68.30 Body mass index [BMI] 30.0-30.9, adult; Z79.891 Long term (current) use of opiate analgesic; Z98.890 Other specified postprocedural states; Z98.51 Tubal ligation status; Z87.891 Personal history of nicotine dependence; Z80.51 Family history of malignant neoplasm of kidney; Z82.49 Family history of ischemic heart disease and other diseases of the circulatory system
CPT/HCPCS: 57288; A9270; C1771; J1100; J2003; J2250; J2405; J2704; J3010; J7030; J7120